=== PATIENT | male | born 1985 | race Caucasian/White ===

== ENCOUNTER 2018-07-08 23:58 | Emergency (ER) | payer OTHER, SELFPAY ==
[2018-07-08 23:59] VITALS: BP 153/84; PULSE 62; RESP 16; TEMP 36.9; O2SAT 95; BMI 33.3
--- NOTE | 2018-07-09 00:16 | ED.DCSUM_ITS ---
- ER Visit Summary Date of Service: 07/09/18 Chief Complaint: Right ear bleeding History of Present Illness: The patient is a 33 M who states that for the past several days she has had an earache. He went to the doctor earlier taryn was diagnosed with otitis media on the right and started on amoxicillin. Then this evening he began to have bleeding from the ear. He states that his hearing is not the same compared to the left. He notes nasal congestion. Physical Examination: Afebrile vital signs are stable Gen: Well-nourished well-developed Head: Normocephalic atraumatic Eyes: Perrl EOMI ENT: Noted nasal congestion. The right tympanic membrane is ruptured. There is blood and debris in the canal. Moist mucous membranes Neck: Supple no lymphadenopathy no JVD nontender CVS: Regular rate rhythm no murmurs normal S1-S2 Respiratory: No distress clear to auscultation bilaterally chest nontender Abdomen: Soft nontender nondistended normal bowel sounds no masses Back: Nontender Extremity: Nontender no edema Skin: Normal color no rash Neuro: alert orientated ?3 CN II-XII intact normal strength sensation reflexes gait cerebellar Psych: Normal affect normal mood Test Results: None indicated Emergency Department Course and Treatment: Patient will be started on Ciprodex. He should continue his Amoxil. Follow-up in 1-2 weeks to ensure resolution Impression: 1. Right tympanic membrane rupture secondary to otitis media This note was generated with [employer] dictation software. It may contain incorrect words, spelling, and punctuation that were not noted in review of the chart prior to signing ED Disposition - Plan for ED Patient: Disposition: Home or Assisted Living Chief Complaint: Ear Problem Instructions: ED Rupture Eardrum Infec Prescriptions: Ciprofloxacin HCl/Dexameth [Ciprodex Otic Suspension] 4 ml RIGHT EAR BID 7 Days #1 drops.susp Referrals: Kota Lobato MD [Primary Care Provider] - (2 weeks)
[2018-07-09 00:19] VITALS: RESP 14
== END 2018-07-09 00:19 | disposition home or self-care (01) ==
PROVIDERS: Emergency Provider Emergency Medicine; Family Provider Family Medicine; PCP Family Medicine
DX: H66.91 Otitis media, unspecified, right ear (principal); H72.91 Unspecified perforation of tympanic membrane, right ear; R09.81 Nasal congestion
CPT/HCPCS: 99282

== ENCOUNTER 2024-08-28 18:06 | Inpatient (IN) | payer OTHER, SELFPAY ==
[2024-08-28 18:07] VITALS: BP 115/91; PULSE 135; RESP 19; TEMP 35.8; O2SAT 99
--- NOTE | 2024-08-28 18:56 | EKG12_ITS ---
Test Reason : DYSRHYTHMIA Blood Pressure : */* mmHG Vent. Rate : 98 BPM Atrial Rate : 98 BPM P-R Int : 150 ms QRS Dur : 84 ms QT Int : 328 ms P-R-T Axes : 60 -18 36 degrees QTcB Int : 418 ms Normal sinus rhythm Normal ECG Confirmed by MILI BUSH, NOLA ([id number]), news videotape editor OSWALD DIEGO ([id number]) on 08/31/2024 2:24:54 PM Referred By: Mac Keen Confirmed By: NOLA GARCES MD
--- NOTE | 2024-08-28 18:58 | EDS_ITS ---
HPI HPI - GI History of Present Illness Chief Complaint: GI Bleed Narrative Narrative: Patient is a 39-year-old male denies any significant past medical history presenting with 1 day of bloody stools. He states he is stooling straight blood. He has had 8-9 episodes. I also reports an episode of coughing today when blood came up. Does not take any blood thinners. Does not take any medications. Denies any associated pain. Does feel lightheaded. Had a sy ncopal episode while in the bathroom here. PFSH PFSH Home Medications ?Medication ?Instructions ?Recorded ?Last Taken ?Type NK 08/28/24 Unknown History Allergy/AdvReac Type Severity Reaction Status Date / Time No Known Allergies Allergy Verified 07/09/18 00:02 Social History Smoking Status: Never smoker ROS ROS ED Constitutional Constitutional ED: Reports sweats and other Details: Lightheaded ; Denies chills or fever(s) Cardiovascular Cardiovascular: Denies chest pain Respiratory/Chest Respiratory/Chest: Reports cough and other Details: Reports hemoptysis ; Denies dyspnea Gastrointestinal Gastrointestinal: Reports melena; Denies abdominal pain, nausea or vomiting Genitourinary Genitourinary ED: Denies dysuria Musculoskeletal Musculoskeletal: Denies arthralgias or myalgias Integumentary Denies rash Neurologic Neurologic: Reports weakness Hematologic/Lymphatic Hematologic/Lymphatic: Denies easy bleeding or easy bruising EXAM Physical Exam Const Vital Signs: 08/28/24 18:07 08/28/24 20:06 08/28/24 22:00 Temperature 96.5 F L Temperature Source Temporal Pulse Rate 135 H 111 H 102 H Respiratory Rate 19 H 17 20 H Blood Pressure 115/91 H 112/64 99/73 Blood Pressure Mean 99 80 81 Pulse Ox 99 97 97 Oxygen Delivery Method Room Air Room Air Room Air 08/28/24 22:26 Temperature 97.9 F Temperature Source Pulse Rate 102 H Respiratory Rate 20 H Blood Pressure 99/73 Blood Pressure Mean 81 Pulse Ox 97 Oxygen Delivery Method Positive well nourished and well developed Constitutional Narrative: Quite ill-appearing, pale General Appearance ED: well developed and pallor HEENT Reports moist mucous membranes normocephalic and atraumatic Eyes PERRL General Eye ED: Negative for pale conjunctiva Neck supple and no JVD Resp normal respiratory effort and clear to auscultation bilaterally Cardio no murmurs Rate: tachycardic GI non-tender and non-distended GI Narrative: Large amount of melanotic/burgundy stool present after bowel movement Inspection: Negative for abdominal distention Auscultation: normoactive bowel sounds Extremity full ROM General Extremety ED: Negative for edema General Extremity: Negative for edema Neuro Sensorium / Orientation: alert Motor Exam: general weakness Psych mental status grossly normal and thought process normal Skin General Skin Exam: pallor MDM MDM MDM Narrative Medical decision making narrative: Patient is evaluated for 1 day of melanotic stools. Patient is tachycardic upon arrival. He went to the bathroom shortly after getting back into his room and had a syncopal episode falling and hitting his head. Patient was evaluated immediately by myself. Patient is pale, diaphoretic and hypotensive. The stool is visualized and is grossly melanotic/bloody. Concern for unstable GI bleed. I did reach out to GI who is aware. Patient stabilized with IV fluids. Given IV Protonix. Does not have any known history of cirrhosis or varices however does report moderate alcohol use. Does not sound like he is an alcoholic however. Lab work shows a significant leukocytosis of 20.9 and a mild anemia with a hemoglobin 12.5. I have no baseline to compare to. His platelets are normal. He does have a left shift. His BUN is elevated at 43 needs a creatinine of 1.16. Lactate is also elevated. Patient is typed and screened. Clinically does improve with IV fluids. He has no further bleeding. Abdomen is soft and nontender. CT of the brain is ordered for evaluation given his fall and CT of the chest abdomen pelvis is ordered given the report of hemoptysis as well as his bleeding. Imaging is largely negative. Patient remitted to the PCU for hemodynamic monitoring, blood transfusion as needed and GI consult. H&H repeated and does show mild drop from 12.5-11.3. All patient's labs are consistent with septic shock I think this is more associated with unstable GI bleed and not infectious. He is not given antibiotics at this time. History & Record Review Additional record(s) reviewed:: No prior records Lab Data Attestation: I reviewed the patient's lab results. Labs: Laboratory Results - last 24 hr 08/28/24 08/28/2408/28/24 18:19 18:52 18:55 WBC 20.9 H RBC 3.94 L Hgb 12.5 L Hct 36.7 L MCV 93.1 MCH 31.7 MCHC 34.1 RDW Std Deviation 40.9 RDW Coeff of Ajit 12.0 Plt Count 421 MPV 9.2 Immature Gran % (Auto) 1.200 H Neut % (Auto) 80.3 H Lymph % (Auto) 12.4 L [place] % (Auto) 5.4 Eos % (Auto) 0.3 Baso % (Auto) 0.4 Absolute Neuts (auto) 16.8 H Absolute Lymphs (auto) 2.60 Nucleated RBC % 0 PT 13.6 INR 1.0 APTT 21.9 L Sodium 139 Potassium 3.9 Chloride 107 Carbon Dioxide 26.0 Anion Gap 6 BUN 43 H Creatinine 1.16 Est GFR (MDRD) Af Amer 90 Est GFR (MDRD) Non-Af 74 BUN/Creatinine Ratio 37.1 H Glucose 162 H Hemoglobin A1c Lactic Acid Calcium 8.4 L Iron TIBC Iron Saturation Ferritin Total Bilirubin 0.50 Direct Bilirubin 0.14 AST 15 ALT 32 Alkaline Phosphatase 73 Troponin I High Sens 18 Total Protein 6.1 L Albumin 3.2 Globulin 2.9 Lipase 14 Folate Urine Color Yellow Urine Clarity Clear Urine pH 6.0 Ur Specific [place] 1.020 Urine Protein 15 H Urine Glucose (UA) 50 H Urine Ketones Negative Urine Occult Blood Negative Urine Nitrite Negative Urine Bilirubin Negative Urine Urobilinogen Normal Ur Leukocyte Esterase Negative Urine RBC 0-5 SEEN Urine WBC 0-5 SEEN Ur Squamous Epith Cells 0 SEEN Urine Bacteria 0 SEEN Hyaline Casts 0-5 SEEN Urine Mucus 1+ Ethyl Alcohol < 3.0 POC Glucose 156 H Blood Type O POSITIVE Antibody Screen NEGATIVE 08/28/24 08/28/24 08/28/24 19:05 21:28 22:55 WBC 16.3 H RBC 3.48 L Hgb 11.3 L Hct 32.3 L MCV 92.8 MCH 32.5 H MCHC 35.0 RDW Std Deviation 40.9 RDW Coeff of Ajit 12.1 Plt Count 343 MPV 9.3 Immature Gran % (Auto) Neut % (Auto) Lymph % (Auto) [place] % (Auto) Eos % (Auto) Baso % (Auto) Absolute Neuts (auto) Absolute Lymphs (auto) Nucleated RBC % PT INR APTT Sodium Potassium Chloride Carbon Dioxide Anion Gap BUN Creatinine Est GFR (MDRD) Af Amer Est GFR (MDRD) Non-Af BUN/Creatinine Ratio Glucose Hemoglobin A1c 5.0 Lactic Acid 2.3 H* Calcium Iron 94 TIBC 256 Iron Saturation 36.7 Ferritin 156 Total Bilirubin Direct Bilirubin AST ALT Alkaline Phosphatase Troponin I High Sens 26 Total Protein Albumin Globulin Lipase Folate 8.80 Urine Color Urine Clarity Urine pH Ur Specific [place] Urine Protein Urine Glucose (UA) Urine Ketones Urine Occult Blood Urine Nitrite Urine Bilirubin Urine Urobilinogen Ur Leukocyte Esterase Urine RBC Urine WBC Ur Squamous Epith Cells Urine Bacteria Hyaline Casts Urine Mucus Ethyl Alcohol POC Glucose Blood Type Antibody Screen 08/28/24 23:28 WBC RBC Hgb Hct MCV MCH MCHC RDW Std Deviation RDW Coeff of Ajit Plt Count MPV Immature Gran % (Auto) Neut % (Auto) Lymph % (Auto) [place] % (Auto) Eos % (Auto) Baso % (Auto) Absolute Neuts (auto) Absolute Lymphs (auto) Nucleated RBC % PT INR APTT Sodium Potassium Chloride Carbon Dioxide Anion Gap BUN Creatinine Est GFR (MDRD) Af Amer Est GFR (MDRD) Non-Af BUN/Creatinine Ratio Glucose Hemoglobin A1c Lactic Acid 1.2 Calcium Iron TIBC Iron Saturation Ferritin Total Bilirubin Direct Bilirubin AST ALT Alkaline Phosphatase Troponin I High Sens Total Protein Albumin Globulin Lipase Folate Urine Color Urine Clarity Urine pH Ur Specific [place] Urine Protein Urine Glucose (UA) Urine Ketones Urine Occult Blood Urine Nitrite Urine Bilirubin Urine Urobilinogen Ur Leukocyte Esterase Urine RBC Urine WBC Ur Squamous Epith Cells Urine Bacteria Hyaline Casts Urine Mucus Ethyl Alcohol POC Glucose Blood Type Antibody Screen Radiography Diagnostic Testing: Clinical Impression(s) from Imaging Studies Brain CT 08/28/24 20:07 IMPRESSION: 1. Normal CT examination of brain 2. No intracranial evidence of acute traumatic injury. 3. No intracranial mass, hemorrhage or acute territorial infarct. 4. No radiographically significant sinus disease.. Electronically Signed: Michael Spangler MD at 21:13 EST , Chest/Abdomen/Pelvis CT 08/28/24 20:07 IMPRESSION: 1. No pulmonary infiltrate consolidation or effusion. No masses or adenopathy mediastinum or hilar regions. 2. Small hiatal hernia. 3. No bowel obstruction abscess free fluid or free air. No evidence diverticulitis or appendicitis. No bowel mass is noted. 4. No evidence of obstructive uropathy. 5. No evidence of cholelithiasis or duct dilatation. Electronically Signed: Michael Spangler MD at 21:39 EST , Rhythm Strip Rhythm Strip: Sinus Rhythm Rate: 98 Ectopy: None EKG Initial EKG: Attestation: I personally reviewed and interpreted this EKG as follows: Interpretation: Sinus Rhythm Comments: Normal sinus rhythm 98 bpm Normal axis Normal intervals Normal ST segments Prior: No Prior Management Discussion w/another healthcare provider: Hospitalist and [employer] Discharge Plan Dx/Rx/DC Orders Clinical Impression: Melena, Syncope and collapse, Acute anemia Disposition Disposition: Acute Care Hospital [facility] Discharge Date/Time: 08/29/24 00:10
[2024-08-28] MEDS: 0.9% Normal Saline (1000mL) 1,000 ML 1000 ML IV ×2 (19:00→20:30)
[2024-08-28 19:09] LABS: Absolute Neutrophil Count 16.8 X10^3/uL (2.0-7.7); Basophil# 0.09 X10^3/uL; Basophil% 0.4 % (0-1); Eosinophil# 0.07 X10^3/uL; Eosinophils% 0.3 % (0-5); Hematocrit 36.7 % (40-54); Hemoglobin 12.5 g/dL (13.0-16.5); Lymphocyte % 12.4 % (19-41); Mean Corp Hgb Conc 34.1 g/dL (32-36); Mean Corpuscular Hgb 31.7 pg (27.0-32.0); Mean Corpuscular Volume 93.1 fL (80-94); Mean Platelet Vol. 9.2 fl (6.2-12.0); Monocyte# 1.13 X10^3/uL; Monocyte% 5.4 % (0-10); NRBC Flagged by Analyzer 0 % (0-5); Neutrophil # 16.76 X10^3/uL (2.7-7.7); Neutrophil % 80.3 % (47-70); Platelet Count 421 K/mm3 (150-450); RBC Distribution Width SD 40.9 fl (35.1-43.9); Red Blood Count 3.94 M/mm3 (4.6-6.2); White Blood Count 20.9 K/mm3 (4.4-11.0)
[2024-08-28 19:09] LABS: Bedside Glucose 156 mg/dL (74-106)
[2024-08-28 19:31] LABS: Alcohol, Blood (Medical)-Serum < 3.0 mg/dL
[2024-08-28 19:33] LABS: Prothrombin Time (Protime)PT. 13.6 SECONDS (11.7-14.9)
[2024-08-28 19:34] LABS: Partial Thromboplast Time 21.9 Seconds (24.1-36.2)
[2024-08-28 19:40] LABS: AST(SGOT) 15 U/L (15-37); Alanine Aminotransfer ALT/SGPT 32 U/L (16-61); Albumin, Serum 3.2 g/dL (3.2-5.0); Alkaline Phosphatase 73 U/L (45-117); Anion Gap 6 (5-15); BUN 43 mg/dL (7-18); BUN/Creat Ratio 37.1 RATIO (10-20); Bilirubin, Direct 0.14 mg/dL (0.00-0.30); Calcium,Total 8.4 mg/dL (8.5-10.1); Chloride 107 mmol/L (98-107); Creatinine, Serum 1.16 mg/dL (0.70-1.30); EST Glomerular Filtration Rate 74 mL/min (>60); Est Glom Filt Rate - Afr Amer 90 mL/min (>60); Globulin 2.9 g/dL (2.2-4.2); Glucose 162 mg/dL (74-106); Lipase 14 U/L (13-75); Potassium 3.9 mmol/L (3.5-5.1); Protein, Total 6.1 g/dL (6.4-8.2); Sodium Level 139 mmol/L (136-145); Troponin-I HS (w/2H Reflex) 18 pg/mL (3.0-78.0)
[2024-08-28] MEDS: Pantoprazole Sodium 80 MG in 0.9% Normal Saline (50mL Bag) 15 ML 420 MG IV BOLUS (19:42)
[2024-08-28 19:50] LABS: Lactic Acid 2.3 mmol/L (0.4-1.9)
[2024-08-28 20:06] VITALS: BP 112/64; PULSE 111; RESP 17; O2SAT 97
--- NOTE | 2024-08-28 20:07 | CT_ITS ---
INDICATION: head injury EXAMINATION: CT BRAIN - CT Head or Brain W/O Contrast Injection TECHNIQUE: Multiple axial images were obtained of the head without intravenous contrast. A radiation dose optimization technique was used for this scan. IV Contrast dosage and agent: None. RADIATION DOSAGE (If Supplied By Facility): CTDIvol = ( 44.99 ) mGy, DLP = ( 829.85 ) mGycm COMPARISON: No relevant prior examinations for comparison FINDINGS: HEMISPHERES: 1. The cerebral parenchyma, ventricular system, subarachnoid spaces have normal configuration and density. There is a normal gyral pattern. There is normal ortiz/white differentiation. No midline shift.. 2. The hemispheric white matter has normal appearance. 3. No intraparenchymal mass, hemorrhage, or acute territorial infarct. CEREBELLUM - BRAINSTEM: The cerebellum, brainstem, basilar and suprasellar cisterns have normal appearance. No Chiari malformation. PITUITARY: Infundibulum and pituitary have normal configuration. Midline structures appear normal. CSF SPACES: Appropriate for age. No hydrocephalus. Basal cisterns are patent. VESSELS: 1. No significant vascular calcifications in the cavernous carotid vessels. 2. No hyperdense vascular signs noted.. ORBITS AND PARANASAL SINUSES: 1. Normal appearance of the bony orbits. Normal appearance of the globes and retrobulbar soft tissues.. 2. Paranasal sinuses are clear. BONY ELEMENTS: Bony elements of the cranial vault, facial skeleton and skull base have normal appearance. SCALP AND SOFT TISSUES: Normal appearance of the soft tissues of the scalp and the visualized face OTHER: None ASPECTS Score for Acute Strokes: 10 CT/Brain/Head without Contrast IMPRESSION: 1. Normal CT examination of brain 2. No intracranial evidence of acute traumatic injury. 3. No intracranial mass, hemorrhage or acute territorial infarct. 4. No radiographically significant sinus disease.. Electronically Signed: Michael Spangler MD at 21:13 EST ,
--- NOTE | 2024-08-28 20:07 | CT_ITS ---
INDICATION: Reported hemoptysis, upper GI bleed EXAMINATION: CT ABDOMEN AND PELVIS WITH CONTRAST - CT Chest Abdomen And Pelvis W/ Contrast Injection TECHNIQUE: Helically acquired images were obtained of the abdomen and pelvis following IV contrast. A radiation dose optimization technique was used for this scan. IV Contrast dosage and agent: 100 mL [id number] Oral contrast: None. Radiation Dose (provided by facility) CTDIvol (24.25 ) mGy, DLP ( 2743.35) mGy-cm COMPARISON: : No relevant prior comparison study available FINDINGS: CT CHEST: LUNGS: [Lungs are clear without infiltrate consolidation or effusion. Scattered pleural-based nodules are present including a 6 mm nodule along the anterior aspect of the RIGHT middle lobe (series 9: Image 73. Additional pleural-based nodule at the RIGHT apex, measuring approximately 5 mm.. No mass. No consolidation. PLEURAL SPACES: Unremarkable, no effusion or pneumothorax noted.. HEART: Unremarkable. No pericardial effusion. VASCULATURE: Unremarkable. No aortic aneurysm. MEDIASTINUM AND LYMPH NODES: Unremarkable. No significant adenopathy. CERVICAL THORACIC JUNCTION: There is normal appearance of the visualized airway. No masses or abnormal fluid collections. Visualized thyroid is within normal limits. CT ABDOMEN PELVIS: HEPATOBILIARY: Liver: The liver is homogeneous and shows no evidence of focal lesion. Gallbladder: The gallbladder is unremarkable. Pancreas: Pancreas is normal size configuration and density. No mass is noted. Spleen: The spleen is homogeneous and normal in size. . BOWEL: 1. Stomach: The stomach is normal in size configuration, no evidence of focal masses, abnormal calcifications. There is a small hiatal hernia. 2. Bowel: Small and large have normal configuration, no masses or bowel obstruction noted. Scattered diverticula without evidence diverticulitis. 3. Appendix: Normal: GENITOURINARY: Adrenals: Both adrenal glands are normal in size. Kidneys: Kidneys appear symmetric in size. No calcifications are seen in the collecting system. There is no hydronephrosis or surrounding fluid. Bladder: Normal Pelvic organs: The visualized pelvic organs are normal in size and configuration. No masses or adenopathy noted. RETROPERITONEUM: There is normal appearance of the abdominal aorta and inferior vena cava. No evidence of retroperitoneal or para-aortic masses fluid collections or adenopathy. ANTERIOR ABDOMINAL WALL: There is a small periumbilical fat-containing hernia. CHEST ABDOMEN PELVIS - BONES AND BODY WALL SOFT TISSUES: 1. Mild thoracic and lumbar spondylosis with marginal osteophyte formation present. No evidence of fracture destructive bony process. No canal stenosis. 2. No fractures focal bony lesions involving the sternum, visualized rib cage, shoulders, pelvis or hips. 3. The skeleton shows no evidence for fractures or destructive lesions. OTHER: None CT/CT Chest, Abd, Pel w/Contrast IMPRESSION: 1. No pulmonary infiltrate consolidation or effusion. No masses or adenopathy mediastinum or hilar regions. 2. Small hiatal hernia. 3. No bowel obstruction abscess free fluid or free air. No evidence diverticulitis or appendicitis. No bowel mass is noted. 4. No evidence of obstructive uropathy. 5. No evidence of cholelithiasis or duct dilatation. Electronically Signed: Michael Spangler MD at 21:39 EST ,
[2024-08-28 20:25] LABS: Bacteria 0 SEEN /hpf (None Seen); Squamous Epithelial Cells - UA 0 SEEN /hpf (0-5)
[2024-08-28 20:26] LABS: Color, Urine Yellow (Yellow); Glucose, Dipstick 50 mg/dl (Normal); Ketone-Dipstick Negative (Negative); Leukocyte Esterase-Dipstick Negative /ul (Negative); Nitrite-Dipstick Negative (Negative); Occult Blood-Urine Negative /ul (Negative); Protein-Dipstick 15 mg/dl (Negative); Urine Bilirubin Dipstick Negative (Negative); Urine Clarity Clear (Clear); Urine Urobilinogen Normal (Normal)
[2024-08-28 21:04] LABS: Reflex Troponin-HS? (from REC) Y
[2024-08-28 21:07] LABS: Hyaline Cast 0-5 SEEN /lpf (0-5); Mucous, Urine 1+ /hpf (<or=2+); Red Blood Cells-Urine 0-5 SEEN /hpf (0-5); White Blood Cells 0-5 SEEN /hpf (0-5)
[2024-08-28 22:00] VITALS: BP 99/73; PULSE 102; RESP 20; O2SAT 97
[2024-08-28 22:14] LABS: Troponin-I HS 26 pg/mL (3.0-78.0)
[2024-08-28 22:26] VITALS: BP 99/73; PULSE 102; RESP 20; TEMP 36.6; O2SAT 97
[2024-08-28] MEDS: 0.9% Normal Saline (1000mL) 1,000 ML 150 ML IV (22:56)
[2024-08-28 23:06] LABS: Hematocrit 32.3 % (40-54); Hemoglobin 11.3 g/dL (13.0-16.5); Mean Corpuscular Hgb 32.5 pg (27.0-32.0); Mean Corpuscular Volume 92.8 fL (80-94); Mean Platelet Vol. 9.3 fl (6.2-12.0); Platelet Count 343 K/mm3 (150-450); RBC Distribution Width CV 12.1 % (11.6-14.6); RBC Distribution Width SD 40.9 fl (35.1-43.9); Red Blood Count 3.48 M/mm3 (4.6-6.2); White Blood Count 16.3 K/mm3 (4.4-11.0)
--- NOTE | 2024-08-28 23:07 | HP.PCM.HOS_ITS ---
HPI - General General Date of Admission: 08/28/24 Date of Service: 08/28/24 Chief Complaint: Melanotic Stools with Syncope in ER. HPI Narrative BRANT STALLWORTH, is a 39 M with a past medical history of obesity; with BMI of 37.7 this admission and history of EtOH use who presents to [facility] ER complaining of melanotic stools. Mr. Stallworth reports his symptoms began earlier today with the abrupt-onset of melanotic stools. He states he had eight dark bloody BM's prior to arrival followed by two more after arrival. He admits to lightheadedness with a witnessed syncopal event in the ER shortly after arrival. He also admits to coughing up a small amount of blood but he denies taking blood thinners, known history of PUD, similar previous episodes or a family history of GI bleeding or GI malignancy. He is currently on no medications. He admits to lightheadedness and sweats along with increased life- stress but he denies significant EtOH use, fever, chills, nausea, vomiting or abdominal pain. In the ER he was diagnosed with suspected UGIB with melanotic stools likely due to PUD complicated by Syncope suspected to be due to ABLA with a hemoglobin of 12.5 g/dL and BUN of 43 mg/dL with serum creatinine of 1.16 mg/dL present on admission complicated by Leukocytosis of 20.9K with Left-shift of 1.2% and Lactic Acidosis of 2.3 mmol/L present on admission suspected to be due to Acute Stress Response arising from Severe Bleeding and he was then admitted to the PCU for ongoing care for a stay that is expected to extend beyond 2 midnights. [facility] Medical History no medical history Home Medications ?Medication ?Instructions ?Recorded ?Last Taken ?Type NK 08/28/24 Unknown History Allergy/AdvReac Type Severity Reaction Status Date / Time No Known Allergies Allergy Verified 07/09/18 00:02 Family History no significant family his Surgical History no surgical history Social History Smoking Status: Never smoker ROS ROS Narrative Review of Systems: Constitutional: Patient admits to lightheadedness and sweats but he denies fever or chills. Eyes: Patient denies changes in vision or discharge from eyes. ENT: Patient denies runny nose, sore throat or ear pain. Resp: Patient admits to cough with bloody sputum but he denies SOB. CV: Patient admits to syncopal event in ER. He denies chest pain or palpitations. GI: Patient admits to numerous melanotic stools as per HPI but he denies abdominal pain, nausea or vomiting. : Patient denies dysuria or hematuria. MSK: Patient denies arthralgias or myalgias. Skin: Patient denies rash, abscess or jaundice. Psych: Patient admits to increased life stress but he denies symptoms of uncontrolled depression or anxiety. Neuro: Patient denies headache, paresthesias or focal neurologic deficits. Allergy: Patient denies lip swelling, tongue swelling or urticaria. Hematology: Patient admits to numerous melanotic stools as per HPI. Endocrinology: Patient denies polyuria, polydipsia or polyphagia. 14 point ROS otherwise negative except for positives noted above in HPI. Vital Signs Vital Signs Vital Signs: 08/28/24 18:07 08/28/24 20:06 08/28/24 22:00 Temperature 96.5 F L Temperature Source Temporal Pulse Rate 135 H 111 H 102 H Respiratory Rate 19 H 17 20 H Blood Pressure 115/91 H 112/64 99/73 Blood Pressure Mean 99 80 81 Pulse Ox 99 97 97 Oxygen Delivery Method Room Air Room Air Room Air 08/28/24 22:26 Temperature 97.9 F Temperature Source Pulse Rate 102 H Respiratory Rate 20 H Blood Pressure 99/73 Blood Pressure Mean 81 Pulse Ox 97 Oxygen Delivery Method Physical Exam Const alert, oriented x3, no apparent distress, average body habitus and healthy appearing General Appearance: cooperative HEENT normocephalic, head/scalp atraumatic, hearing grossly normal bilaterally and moist oral mucous membranes Eyes PERRL and EOMs intact bilaterally Neck no lymphadenopathy and supple Resp normal respiratory effort, no retractions, no use of accessory muscles and clear to auscultation bilaterally Cardio regular rate and regular rhythm GI normal to inspection, nondistended, normoactive bowel sounds, soft to palpation, non-tender and non-distended Extremity normal to inspection and full ROM Skin Skin Narrative: Patient has numerous tattoos but he has no evidence of rash, abscess or jaundice. Neuro oriented x3, CN's II-XII intact bilaterally, moves all extremities and no focal motor deficits Sensorium / Orientation: awake, alert, oriented to person, oriented to place and oriented to time Speech: speech normal Psych affect normal Results Medical Records Data Attestation: I reviewed the patient's medical records Lab / Micro Data Attestation: I reviewed the patient's lab results. 08/28/24 22:55 08/28/24 18:55 Labs: Laboratory Results - last 24 hr 08/28/24 18:19: Urine Color Yellow, Urine Clarity Clear, Urine pH 6.0, Ur Specific [place] 1.020, Urine Protein 15 H, Urine Glucose (UA) 50 H, Urine Ketones Negative, Urine Occult Blood Negative, Urine Nitrite Negative, Urine Bilirubin Negative, Urine Urobilinogen Normal, Ur Leukocyte Esterase Negative, Urine RBC 0-5 SEEN, Urine WBC 0-5 SEEN, Ur Squamous Epith Cells 0 SEEN, Urine Bacteria 0 SEEN, Hyaline Casts 0-5 SEEN, Urine Mucus 1+ 08/28/24 18:52: POC Glucose 156 H 08/28/24 18:55: WBC 20.9 H, RBC 3.94 L, Hgb 12.5 L, Hct 36.7 L, MCV 93.1, MCH 31.7, MCHC 34.1, RDW Std Deviation 40.9, RDW Coeff of Ajit 12.0, Plt Count 421, MPV 9.2, Immature Gran % (Auto) 1.200 H, Neut % (Auto) 80.3 H, Lymph % (Auto) 12.4 L, [place] % (Auto) 5.4, Eos % (Auto) 0.3, Baso % (Auto) 0.4, Absolute Neuts (auto) 16.8 H, Absolute Lymphs (auto) 2.60, Nucleated RBC % 0, PT 13.6, INR 1.0, APTT 21.9 L, Sodium 139, Potassium 3.9, Chloride 107, Carbon Dioxide 26.0, Anion Gap 6, BUN 43 H, Creatinine 1.16, Est GFR (MDRD) Af Amer 90, Est GFR (MDRD) Non- Af 74, BUN/Creatinine Ratio 37.1 H, Glucose 162 H, Calcium 8.4 L, Total Bilirubin 0.50, Direct Bilirubin 0.14, AST 15, ALT 32, Alkaline Phosphatase 73, Troponin I High Sens 18, Total Protein 6.1 L, Albumin 3.2, Globulin 2.9, Lipase 14, Ethyl Alcohol < 3.0, Blood Type O POSITIVE, Antibody Screen NEGATIVE 08/28/24 19:05: Lactic Acid 2.3 H* 08/28/24 21:28: Troponin I High Sens 26 08/28/24 22:55: WBC 16.3 H, RBC 3.48 L, Hgb 11.3 L, Hct 32.3 L, MCV 92.8, MCH 32.5 H, MCHC 35.0, RDW Std Deviation 40.9, RDW Coeff of Ajit 12.1, Plt Count 343, MPV 9.3 Imaging Radiology Impression Brain CT 08/28/24 20:07 IMPRESSION: 1. Normal CT examination of brain 2. No intracranial evidence of acute traumatic injury. 3. No intracranial mass, hemorrhage or acute territorial infarct. 4. No radiographically significant sinus disease.. Electronically Signed: Michael Spangler MD at 21:13 EST Reading Location ID and State: [id number] Tel , Service support , Chest/Abdomen/Pelvis CT 08/28/24 20:07 IMPRESSION: 1. No pulmonary infiltrate consolidation or effusion. No masses or adenopathy mediastinum or hilar regions. 2. Small hiatal hernia. 3. No bowel obstruction abscess free fluid or free air. No evidence diverticulitis or appendicitis. No bowel mass is noted. 4. No evidence of obstructive uropathy. 5. No evidence of cholelithiasis or duct dilatation. Electronically Signed: Michael Spangler MD at 21:39 EST , Assessment & Plan Assessment/Plan (1) Melena: (2) Acute anemia: (3) Syncope and collapse: (4) Leukocytosis: QUALIFIERS: Leukocytosis type: unspecified Qualified Code(s): D 72.829 - Elevated white blood cell count, unspecified (5) Lactic acidosis: (6) Obesity (BMI 30-39.9): PLAN: Plan 1. UGIB with melanotic stools likely due to PUD complicated by Syncope suspected to be due to ABLA with a hemoglobin of 12.5 g/dL and BUN of 43 mg/dL with serum creatinine of 1.16 mg/dL present on admission - Admit to PCU. Keep strict NPO and continue IV Protonix drip begun in ER. Type and Screen blood and transfuse for hemoglobin < 7g/dL. Finally, we will consult gastroenterology to see this patient on-rounds in the AM for further recommendations regarding EGD this admission with help appreciated in advance. 2. Leukocytosis of 20.9K with Left-shift of 1.2% and Lactic Acidosis of 2.3 mmol/L present on admission suspected to be due to Acute Stress Response arising from Severe Bleeding arising from #1 - Recheck CBC in AM to follow trend. Repeat lactate to follow trend. There are currently no signs of acute infection or fever so antibiotics will be withheld. 3. Obesity; with BMI of 37.7 this admission complicating #1 & #2 - Weight loss will be recommended. Check TSH. This complicates his case and may hamper recovery. 4. History of EtOH use - Noted not to be significant with no recent EtOH Abuse. 5. DVT prophylaxis - SCD's only. Total time: Approximately 55 minutes. Charges/Coding Visit Charges Inpatient E&M: 72538 Init Hosp L2
[2024-08-28 23:09] LABS: Reflex Lactate? Y
[2024-08-28 23:57] LABS: Lactic Acid 1.2 mmol/L (0.4-1.9)
[2024-08-29] VITALS (14 sets, daily range): BP systolic 100–131; BP diastolic 59–81; PULSE 81–111; RESP 14–18; TEMP 35.8–36.6; O2SAT 96–99; BMI 37.7
[2024-08-29] LABS: Ferritin 156 ng/mL (26-388); Iron 94 ug/dL (65-175); Iron Binding Capacity,Total 256 ug/dL (250-450); PERCENT IRON SATURATION 36.7 % (15.0-55.0)
[2024-08-29] MEDS: Pantoprazole Sodium 80 MG in 0.9% Normal Saline (100mL Bag) 80 ML 10 MG CONT INF ×2 (01:38→13:12)
[2024-08-29 01:46] LABS: Vitamin B12 484 pg/mL (211-911)
[2024-08-29 06:37] LABS: Absolute Lymphocyte Count 2.52 X10^3/uL (0.83-4.51); Absolute Neutrophil Count 7.9 X10^3/uL (2.0-7.7); Basophil# 0.05 X10^3/uL; Basophil% 0.4 % (0-1); Eosinophil# 0.08 X10^3/uL; Eosinophils% 0.7 % (0-5); Hematocrit 28.8 % (40-54); Hemoglobin 9.9 g/dL (13.0-16.5); Lymphocyte # 2.52 X10^3/ul (0.83-4.51); Lymphocyte % 21.9 % (19-41); Mean Corp Hgb Conc 34.4 g/dL (32-36); Mean Corpuscular Hgb 31.7 pg (27.0-32.0); Mean Corpuscular Volume 92.3 fL (80-94); Mean Platelet Vol. 9.3 fl (6.2-12.0); Monocyte# 0.81 X10^3/uL; NRBC Flagged by Analyzer 0 % (0-5); Neutrophil # 7.94 X10^3/uL (2.7-7.7); Neutrophil % 68.9 % (47-70); Platelet Count 299 K/mm3 (150-450); RBC Distribution Width CV 12.2 % (11.6-14.6); RBC Distribution Width SD 40.6 fl (35.1-43.9); Red Blood Count 3.12 M/mm3 (4.6-6.2); White Blood Count 11.5 K/mm3 (4.4-11.0)
[2024-08-29 06:46] LABS: Prothrombin Time (Protime)PT. 13.6 SECONDS (11.7-14.9)
[2024-08-29 06:47] LABS: Partial Thromboplast Time 24.9 Seconds (24.1-36.2)
[2024-08-29 07:25] LABS: ALB/GLOB Ratio 1.2 RATIO (0.9-2.4); AST(SGOT) 16 U/L (15-37); Alanine Aminotransfer ALT/SGPT 25 U/L (16-61); Albumin, Serum 2.8 g/dL (3.2-5.0); Alkaline Phosphatase 55 U/L (45-117); Anion Gap 5 (5-15); BUN 30 mg/dL (7-18); BUN/Creat Ratio 42.6 RATIO (10-20); Calcium,Total 7.8 mg/dL (8.5-10.1); Chloride 110 mmol/L (98-107); EST Glomerular Filtration Rate 132 mL/min (>60); Est Glom Filt Rate - Afr Amer 159 mL/min (>60); Estimated Creatinine Clearance 197.98 ml/min; Globulin 2.4 g/dL (2.2-4.2); Glucose 103 mg/dL (74-106); Magnesium 1.7 mg/dL (1.6-2.6); Phosphorus 2.3 mg/dL (2.5-4.9); Potassium 3.8 mmol/L (3.5-5.1); Protein, Total 5.2 g/dL (6.4-8.2); Sodium Level 139 mmol/L (136-145); Thyroid Stim Hormone (TSH) 0.596 uIU/mL (0.358-3.740)
--- NOTE | 2024-08-29 08:45 | HP.PCM.HOS_ITS ---
HPI - General General Date of Admission: 08/28/24 Date of Service: 08/29/24 Chief Complaint: Melanotic Stools with Syncope in ER. HPI Narrative The patient is a 39 y/o M w/ PMHx: Obesity ABLA secondary to suspected suspected Acute UGIB complicated by Syncopal event: Admission Hgb 12.5, admitted to PCU, continue to trend HHs, administer PRBC as needed if Hgb drops </= 7 or symptomatic, maintain NPO status, maintain on IV PPI, GI consulted and evaluation pending. Leukocytosis, suspected secondary to stress response with #1: Admission w/ WBC 20.9, no evidence of any infection, 08/29/24 most recent repeat CBC w/ WBC 11.5, likely stress response as noted, continue to trend. 3. Obesity; with BMI of 37.7 this admission complicating #1 & #2 - Weight loss will be recommended. Check TSH. This complicates his case and may hamper recovery. 4. History of EtOH use - Noted not to be significant with no recent EtOH Abuse. 5. DVT prophylaxis - SCD's only. [facility] Medical History no medical history Home Medications ?Medication ?Instructions ?Recorded ?Last Taken ?Type NK 08/28/24 Unknown History Allergy/AdvReac Type Severity Reaction Status Date / Time No Known Allergies Allergy Verified 07/09/18 00:02 Family History no significant family his Surgical History no surgical history Social History Smoking Status: Never smoker Vital Signs Vital Signs Vital Signs: 08/28/24 18:07 08/28/24 20:06 08/28/24 22:00 Temperature 96.5 F L Temperature Source Temporal Pulse Rate 135 H 111 H 102 H Respiratory Rate 19 H 17 20 H Blood Pressure 115/91 H 112/64 99/73 Blood Pressure Mean 99 80 81 Blood Pressure Source Blood Pressure Position Blood Pressure Location Pulse Ox 99 97 97 Oxygen Delivery Method Room Air Room Air Room Air 08/28/24 22:26 08/29/24 00:00 08/29/24 00:45 Temperature 97.9 F 96.5 F L Temperature Source Temporal Pulse Rate 102 H 111 H 95 Respiratory Rate 20 H 16 18 Blood Pressure 99/73 131/81 H 123/65 H Blood Pressure Mean 81 97 84 Blood Pressure Source Monitor Blood Pressure Position Semi-Fowlers Blood Pressure Location Right Forearm Pulse Ox 97 97 98 Oxygen Delivery Method Room Air 08/29/24 06:26 Temperature 97.8 F Temperature Source Oral Pulse Rate 91 Respiratory Rate 14 Blood Pressure 116/74 Blood Pressure Mean 88 Blood Pressure Source Monitor Blood Pressure Position Semi-Fowlers Blood Pressure Location Right Arm Pulse Ox 96 Oxygen Delivery Method Room Air Weight Weight: 285 lb 11.505 oz Body Mass Index (BMI) 37.7 Results Lab / Micro Data 08/29/24 06:20 08/29/24 06:20 Labs: Laboratory Results - last 24 hr 08/28/24 18:19: Urine Color Yellow, Urine Clarity Clear, Urine pH 6.0, Ur Specific [place] 1.020, Urine Protein 15 H, Urine Glucose (UA) 50 H, Urine Ketones Negative, Urine Occult Blood Negative, Urine Nitrite Negative, Urine Bilirubin Negative, Urine Urobilinogen Normal, Ur Leukocyte Esterase Negative, Urine RBC 0-5 SEEN, Urine WBC 0-5 SEEN, Ur Squamous Epith Cells 0 SEEN, Urine Bacteria 0 SEEN, Hyaline Casts 0-5 SEEN, Urine Mucus 1+ 08/28/24 18:52: POC Glucose 156 H 08/28/24 18:55: WBC 20.9 H, RBC 3.94 L, Hgb 12.5 L, Hct 36.7 L, MCV 93.1, MCH 31.7, MCHC 34.1, RDW Std Deviation 40.9, RDW Coeff of Ajit 12.0, Plt Count 421, MPV 9.2, Immature Gran % (Auto) 1.200 H, Neut % (Auto) 80.3 H, Lymph % (Auto) 12.4 L, [place] % (Auto) 5.4, Eos % (Auto) 0.3, Baso % (Auto) 0.4, Absolute Neuts (auto) 16.8 H, Absolute Lymphs (auto) 2.60, Nucleated RBC % 0, PT 13.6, INR 1.0, APTT 21.9 L, Sodium 139, Potassium 3.9, Chloride 107, Carbon Dioxide 26.0, Anion Gap 6, BUN 43 H, Creatinine 1.16, Est GFR (MDRD) Af Amer 90, Est GFR (MDRD) Non- Af 74, BUN/Creatinine Ratio 37.1 H, Glucose 162 H, Calcium 8.4 L, Total Bilirubin 0.50, Direct Bilirubin 0.14, AST 15, ALT 32, Alkaline Phosphatase 73, Troponin I High Sens 18, Total Protein 6.1 L, Albumin 3.2, Globulin 2.9, Lipase 14, Vitamin B12 484, Ethyl Alcohol < 3.0, Blood Type O POSITIVE, Antibody Screen NEGATIVE 08/28/24 19:05: Lactic Acid 2.3 H* 08/28/24 21:28: Iron 94, TIBC 256, Iron Saturation 36.7, Ferritin 156, Troponin I High Sens 26, Folate 8.80 08/28/24 22:55: WBC 16.3 H, RBC 3.48 L, Hgb 11.3 L, Hct 32.3 L, MCV 92.8, MCH 32.5 H, MCHC 35.0, RDW Std Deviation 40.9, RDW Coeff of Ajit 12.1, Plt Count 343, MPV 9.3, Hemoglobin A1c 5.0 08/28/24 23:28: Lactic Acid 1.2 08/29/24 06:20: WBC 11.5 H, RBC 3.12 L, Hgb 9.9 L, Hct 28.8 L, MCV 92.3, MCH 31.7, MCHC 34.4, RDW Std Deviation 40.6, RDW Coeff of Ajit 12.2, Plt Count 299, MPV 9.3, Immature Gran % (Auto) 1.100 H, Neut % (Auto) 68.9, Lymph % (Auto) 21.9, [place] % (Auto) 7.0, Eos % (Auto) 0.7, Baso % (Auto) 0.4, Absolute Neuts (auto) 7.9 H, Absolute Lymphs (auto) 2.52, Nucleated RBC % 0, PT 13.6, INR 1.0, APTT 24.9, Sodium 139, Potassium 3.8, Chloride 110 H, Carbon Dioxide 24.0, Anion Gap 5, BUN 30 H, Creatinine 0.70, Estim Creat Clear Calc 197.98, Est GFR (MDRD) Af Amer 159, Est GFR (MDRD) Non-Af 132, BUN/Creatinine Ratio 42.6 H, Glucose 103, Calcium 7.8 L, Phosphorus 2.3 L, Magnesium 1.7, Total Bilirubin 0.60, AST 16, ALT 25, Alkaline Phosphatase 55, Total Protein 5.2 L, Albumin 2.8 L, Globulin 2.4, Albumin/Globulin Ratio 1.2, TSH 0.596 Rhythm Strip Rhythm Strip: Sinus Rhythm Rate: 98 Ectopy: None Imaging Radiology Impression Brain CT 08/28/24 20:07 IMPRESSION: 1. Normal CT examination of brain 2. No intracranial evidence of acute traumatic injury. 3. No intracranial mass, hemorrhage or acute territorial infarct. 4. No radiographically significant sinus disease.. Electronically Signed: Michael Spangler MD at 21:13 EST , Chest/Abdomen/Pelvis CT 08/28/24 20:07 IMPRESSION: 1. No pulmonary infiltrate consolidation or effusion. No masses or adenopathy mediastinum or hilar regions. 2. Small hiatal hernia. 3. No bowel obstruction abscess free fluid or free air. No evidence diverticulitis or appendicitis. No bowel mass is noted. 4. No evidence of obstructive uropathy. 5. No evidence of cholelithiasis or duct dilatation. Electronically Signed: Michael Spangler MD at 21:39 EST ,
--- NOTE | 2024-08-29 08:49 | PN.HOSP_ITS ---
Reason for Visit Reason for Visit: Diagnoses Anemia, unspecified (08/28/24) Elevated white blood cell count, unspecified (08/28/24) Obesity, unspecified (08/28/24) Acidosis, unspecified (08/28/24) Melena (08/28/24) Syncope and collapse (08/28/24) Subjective Subjective Patient with no acute events overnight per self and per nursing report. Patient had no recurrent syncopal type sensation or events. Hemoglobin improved with PRBC administration to 9.9 this AM. 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 Patient currently noting he is very eager for discharge to go home and celebrate [place] with his family. Discussed at length concerns and follow-up needs and he is willing to be very diligent. Patient denies fevers, chills, nausea, emesis, abdominal pain, chest pain or dyspnea. Objective Data Objective Data Vital Signs: Vital Signs Temp Pulse Resp BP Pulse Ox O2 Del Method 97.8 F 91 14 116/74 96 Room Air 08/29/24 06:26 08/29/24 06:26 08/29/24 06:26 08/29/24 06:26 08/29/24 06:26 08/29/24 06:26 Oxygen Delivery Method Room Air Weight: 285 lb 11.505 oz Body Mass Index (BMI) 37.7 Intake & Output: Intake and Output for Last 24 Hours 08/27/24 08/28/24 08/29/24 23:59 23:59 23:59 Intake Total 2034 / 2034 1000 / 1000 Balance 2034 1000 / 1000 Lab / Micro Data 08/29/24 06:20 08/29/24 06:20 Labs: Laboratory Results - last 24 hr 08/28/24 18:19: Urine Color Yellow, Urine Clarity Clear, Urine pH 6.0, Ur Specific [place] 1.020, Urine Protein 15 H, Urine Glucose (UA) 50 H, Urine Ketones Negative, Urine Occult Blood Negative, Urine Nitrite Negative, Urine Bilirubin Negative, Urine Urobilinogen Normal, Ur Leukocyte Esterase Negative, Urine RBC 0-5 SEEN, Urine WBC 0-5 SEEN, Ur Squamous Epith Cells 0 SEEN, Urine Bacteria 0 SEEN, Hyaline Casts 0-5 SEEN, Urine Mucus 1+ 08/28/24 18:52: POC Glucose 156 H 08/28/24 18:55: WBC 20.9 H, RBC 3.94 L, Hgb 12.5 L, Hct 36.7 L, MCV 93.1, MCH 31.7, MCHC 34.1, RDW Std Deviation 40.9, RDW Coeff of Ajit 12.0, Plt Count 421, MPV 9.2, Immature Gran % (Auto) 1.200 H, Neut % (Auto) 80.3 H, Lymph % (Auto) 12.4 L, [place] % (Auto) 5.4, Eos % (Auto) 0.3, Baso % (Auto) 0.4, Absolute Neuts (auto) 16.8 H, Absolute Lymphs (auto) 2.60, Nucleated RBC % 0, PT 13.6, INR 1.0, APTT 21.9 L, Sodium 139, Potassium 3.9, Chloride 107, Carbon Dioxide 26.0, Anion Gap 6, BUN 43 H, Creatinine 1.16, Est GFR (MDRD) Af Amer 90, Est GFR (MDRD) Non- Af 74, BUN/Creatinine Ratio 37.1 H, Glucose 162 H, Calcium 8.4 L, Total Bilirubin 0.50, Direct Bilirubin 0.14, AST 15, ALT 32, Alkaline Phosphatase 73, Troponin I High Sens 18, Total Protein 6.1 L, Albumin 3.2, Globulin 2.9, Lipase 14, Vitamin B12 484, Ethyl Alcohol < 3.0, Blood Type O POSITIVE, Antibody Screen NEGATIVE 08/28/24 19:05: Lactic Acid 2.3 H* 08/28/24 21:28: Iron 94, TIBC 256, Iron Saturation 36.7, Ferritin 156, Troponin I High Sens 26, Folate 8.80 08/28/24 22:55: WBC 16.3 H, RBC 3.48 L, Hgb 11.3 L, Hct 32.3 L, MCV 92.8, MCH 32.5 H, MCHC 35.0, RDW Std Deviation 40.9, RDW Coeff of Ajit 12.1, Plt Count 343, MPV 9.3, Hemoglobin A1c 5.0 08/28/24 23:28: Lactic Acid 1.2 08/29/24 06:20: WBC 11.5 H, RBC 3.12 L, Hgb 9.9 L, Hct 28.8 L, MCV 92.3, MCH 31.7, MCHC 34.4, RDW Std Deviation 40.6, RDW Coeff of Ajit 12.2, Plt Count 299, MPV 9.3, Immature Gran % (Auto) 1.100 H, Neut % (Auto) 68.9, Lymph % (Auto) 21.9, [place] % (Auto) 7.0, Eos % (Auto) 0.7, Baso % (Auto) 0.4, Absolute Neuts (auto) 7.9 H, Absolute Lymphs (auto) 2.52, Nucleated RBC % 0, PT 13.6, INR 1.0, APTT 24.9, Sodium 139, Potassium 3.8, Chloride 110 H, Carbon Dioxide 24.0, Anion Gap 5, BUN 30 H, Creatinine 0.70, Estim Creat Clear Calc 197.98, Est GFR (MDRD) Af Amer 159, Est GFR (MDRD) Non-Af 132, BUN/Creatinine Ratio 42.6 H, Glucose 103, Calcium 7.8 L, Phosphorus 2.3 L, Magnesium 1.7, Total Bilirubin 0.60, AST 16, ALT 25, Alkaline Phosphatase 55, Total Protein 5.2 L, Albumin 2.8 L, Globulin 2.4, Albumin/Globulin Ratio 1.2, TSH 0.596 Radiography Diagnostic Testing: Radiology Impression Brain CT 08/28/24 20:07 IMPRESSION: 1. Normal CT examination of brain 2. No intracranial evidence of acute traumatic injury. 3. No intracranial mass, hemorrhage or acute territorial infarct. 4. No radiographically significant sinus disease.. Electronically Signed: Michael Spangler MD at 21:13 EST , Chest/Abdomen/Pelvis CT 08/28/24 20:07 IMPRESSION: 1. No pulmonary infiltrate consolidation or effusion. No masses or adenopathy mediastinum or hilar regions. 2. Small hiatal hernia. 3. No bowel obstruction abscess free fluid or free air. No evidence diverticulitis or appendicitis. No bowel mass is noted. 4. No evidence of obstructive uropathy. 5. No evidence of cholelithiasis or duct dilatation. Electronically Signed: Michael Spangler MD at 21:39 EST , Rhythm Strip Rhythm Strip: Sinus Rhythm Rate: 98 Ectopy: None Physical Exam Narrative Physical Examination: General: Awake, alert, oriented x 3 and cooperative, seated upright in the PCU bed in no apparent distress. Skin: Normal color, normal turgor, no icterus, no cyanosis. HEENT: AT/NC, EOMI, PERRLA, MMM. Lungs: CTA bilaterally, moderate effort, mild decrease BL bases, no rales, ronchi or wheezing. Heart: Regular rate and rhythm; no gallop, rub audible. Abdomen: Soft, obese, NTTP, ND, normal BS. Extremities: No cyanosis, clubbing, or edema. Neurological: Patient awake, alert, oriented as noted, cognitive function intact; pupils equally reactive to light and accommodation, cranial nerves grossly normal, moving all 4 extremities, no focal deficits, strength improved, mildly global decrease. Psychiatric: Affect appears fatigued otherwise normal, no acute evidence of depressive or anxiety feelings. Assessment & Plan Assessment/Plan (1) Acute anemia: (2) GI bleed: PLAN: Plan The patient is a 39 y/o M w/ PMHx: Obesity who presents to the [facility] ED on 08/28/2024 with melanotic stools abruptly starting earlier in the day on day of presentation with lightheadedness and syncopal event prompting ED evaluation. #1. 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 Following intervention GI allowance of full liquids. Hgb trending 12/5->11.3->08/29/24 Hgb 9.9. Discussing potential discharge with gastroenterology given patient's strong preference and they are amenable with follow-up in 1 week, continue twice daily high-dose PPI as well as PCP establishment with plan to repeat CBC, BMP as well as phosphorus levels outpatient given deficiency noted. #2. Leukocytosis, suspected secondary to stress response with #1: Admission w/ WBC 20.9, no evidence of any infection, 08/29/24 most recent repeat CBC w/ WBC 11.5, likely stress response as noted, continue to trend. #3. Lactic acidosis, likely secondary to #1: Admission LA 2.3, hydrated, repeat LA 1.2, resolved. #4. Acute kidney injury: Secondary to acute presentation as noted above #1. Admission BUN/Cr 43/1.16, GFR 74, hydrated, repeat 08/29/2024 creatinine 0.7, likely more baseline therefore presentation consistent with KRISTIN, continue to trend. #5. Hyperglycemia without Diabetic history: Admission Glucose 162, HgbA1c 5.0%. #6. Hypophosphatemia: Admission potassium 2.3, supplementation administered, repeat level in AM. #7. Obesity: Weight loss and lifestyle changes encouraged. TSH normal level. #8. DVT prophylaxis: SCDs. Charges/Coding Visit Charges Inpatient E&M: 14996 Subs Hosp L3
[2024-08-29] MEDS: 0.9% Normal Saline (1000mL) 1,000 ML 100 ML IV (09:54)
--- NOTE | 2024-08-29 10:49 | CASEMGMT ---
JANAE STEEN Assessment Face to Face with patient for initial transition planning/care coordination assessment. JANAE STEEN introduced self and role at [facility], pt voices understanding. Pt is A&Ox4 and is resting comfortably in bed and is calm. Care providers, pharmacy, and demographics verified. Admitting dx: Melena with Syncope LACE Strata: 1 PCP: No PCP. Provider list given Specialists: Denies Preferred Pharmacy[facility] Insurance: [employer] Prescription Benefit: Yes LNOK: Elly (W) Living Arrangements: Pt lives with his and 2 children (Ages 13 & 6) in a 2 story home with 3 steps to enter ADLs/IADLs: Ind Transportation: Self, DME: Denies all DME uses or needs HHC/SNF: Denies history or needs Pt?s goal: Return home Plan: home no needs. 6-click is 24. Pt denies further needs moving forward and states that he feels safe returning home with his family once he is medically ready. Pt states that he has not had any bloody stools today and denies lightheadedness or dizziness. Pt denies further questions or concern at this time. Report given to POTATO BUCKER CM. Wendy Stokes RN, CM
--- NOTE | 2024-08-29 11:03 | PRE.ANES_ITS ---
ASA Classification* ASA Classification ASA Classification: 2 Assessment & Plan Anesthesia* Anesthesia Assessment Anesthesia Assessment: Discussed sedation and/or anesthesia options, risks, benefits, and alternatives with patient/parents/legal guardian/POA. Questions invited. The patient/parents/legal guardian/POA seems to understand and agrees to proceed with anesthesia plan. Reviewed the physical assessment, medical history, allergy history and patient home medications list prior to surgery/procedure/anesthetic and documented any changes. Performed airway and anesthesia risk assessments. Anesthesia Type Anesthesia Type: MAC History Source History Obtained from:: Patient and Chart Anesthesia Focused Assessment* Temperature: 97.5 F Pulse Rate: 85 Blood Pressure: 120/59 Respiratory Rate: 18 Pulse Ox: 99 Oxygen Delivery Method: Room Air Airway Assessment Mouth opens: >3 cm Mallampati Score: I Teeth Condition: Caps/Crowns (Patient has several crowns. They are all tight.) Neck Range of motion (ROM): Limited ROM (Somewhat decreased extension.) Focused Labs Anesthesia Preop lab: CBC WBC 11.5 K/mm3 (4.4-11.0) H 08/29/24 06:20 RBC 3.12 M/mm3 (4.6-6.2) L 08/29/24 06:20 Hgb 9.9 g/dL (13.0-16.5) L 08/29/24 06:20 Hct 28.8 % (40-54) L 08/29/24 06:20 Plt Count 299 K/mm3 (150-450) 08/29/24 06:20 CHEMISTRY Potassium 3.8 mmol/L (3.5-5.1) 08/29/24 06:20 Sodium 139 mmol/L (136-145) 08/29/24 06:20 Magnesium 1.7 mg/dL (1.6-2.6) 08/29/24 06:20 Phosphorus 2.3 mg/dL (2.5-4.9) L 08/29/24 06:20 BUN 30 mg/dL (7-18) H 08/29/24 06:20 Creatinine 0.70 mg/dL (0.70-1.30) 08/29/24 06:20 Glucose 103 mg/dL (74-106) 08/29/24 06:20 POC Glucose 156 mg/dL (74-106) H 08/28/24 18:52 TSH 0.596 uIU/mL (0.358-3.740) 08/29/24 06:20 COAG PT 13.6 SECONDS (11.7-14.9) 08/29/24 06:20 Pre-Assessment Diagnosis/Proposed Procedure Planned Operative Procedure(s): Esophagogastroduodenoscopy with possible biopsies Anesthesia History Anesthesia History - last sawyer: Anesthesia History - last sawyer Hx Hospitalization Any Problems With Anesthesia No 08/29/24 09:56 Cholinesterase deficiency No 08/29/24 09:56 You/Your Family Experience No 08/29/24 09:56 fever (hyperthermia) with Relationship Recent Exposure to Contagious No 08/29/24 09:56 Disease Does patient have nerve No 08/29/24 09:56 stimulator Patient instructed to have No 08/29/24 09:56 device shut off --Does patient have Pacemaker No 08/29/24 09:56 or ICD? When Was Last Pacemaker Check QUESTION #4 FULL TEXT: You/Your Family Experience fever (hyperthermia) with Anesthesia Last Oral Intake Last Oral intake: Last Oral Intake NPO since 00:00 08/29/24 09:56 Meds taken in AM with sips of No 08/29/24 09:56 water? Meds patient instructed to take am of surgery PONV PONV - last sawyer: PONV - last sawyer Female HX of Motion Sickness HX of N/V After Surgery Non-Smoker Duration of Surgery greater than 60 minutes Number of Risk Factors PONV Score Height & Weight Height & Weight: Anesthesia: Height & Weight Height 6 ft 1 in 08/29/24 09:56 Weight: 129.6 kg 08/29/24 09:56 Body Mass Index (BMI) 37.7 08/29/24 09:56 Respiratory Assessment Respiratory Assessment - last sawyer: Respiratory Tract Infection Hx - last sawyer Hx Respiratory Tract Infection No 08/29/24 09:56 Any additional information?: Yes Hx Respiratory Tract Infection: Yes (Patient states he has a stuffy nose right now. Lungs are clear.) STOP Sleep Apnea STOP Sleep Apnea - last sawyer: STOP Sleep Apnea - last sawyer Hx Hypertension No 08/29/24 00:52 Hx Sleep Apnea No 08/29/24 00:52 CPAP BIPAP Do you snore loudly (louder No 08/29/24 00:52 than talking or can be heard Do you often feel tired/ No 08/29/24 00:52 fatigued/ sleepy during daytime? Has anyone observed you stop No 08/29/24 00:52 breathing during sleep? STOP Results Negative 08/29/24 00:52 QUESTION #5 FULL TEXT : Do you snore loudly (louder than talking or can be heard through closed doors)? 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 Specify any problems Hx of Preganancy in last 3 N/A 08/29/24 00:52 Months Nurse Filling Out Transfusion RMAIBACH 08/29/24 00:52 & Questions: Date: 08/29/24 08/29/24 00:52 Time: 00:54 08/29/24 00:52 Patient unable to answer at this time (ie. confused, unrespo /Reproduction History /Reproductive History - last sawyer: /Reproductive Hx- last sawyer Hx Now No 08/29/24 09:56 Gestational Age (in weeks): EDC: Hx Hx Para Hx Section SAB Active Medications Active Medications: Current Medications Generic Name Dose Route Start Last Admin Trade Name Freq PRN Reason Stop Dose Admin Pantoprazole Sodium 80 mg/ 100 mls @ 10 mls/hr 08/29/24 00:36 08/29/24 01:38 Sodium Chloride CONT INF 10 mls/hr Q10H SHRAVAN Administration Sodium Chloride 100 mls @ 15 mls/hr 08/29/24 00:41 IV .Q6H40M PRN Saline Flush Sodium Chloride 100 mls @ 15 mls/hr 08/29/24 00:41 IV .Q6H40M PRN Additional IVPB Infusion Sodium Chloride 1,000 mls @ 100 mls/hr 08/29/24 09:05 08/29/24 09:54 IV 08/29/24 19:04 100 mls/hr .Q10H SHRAVAN Administration Protocol Sodium Phosphate 21 mmol/ 257 mls @ 84 mls/hr 08/29/24 09:30 Sodium Chloride IV 08/29/24 12:33 X1 ONE Iopamidol 0 ml 08/28/24 19:00 08/28/24 20:30 Contrast Allergy Safety Check IV Not Given X1 SHRAVAN Morphine Sulfate 2 mg 08/29/24 00:36 Morphine 2 Mg/Ml Syringe IV Q4H PRN PRN Pain Score 6-10 Ondansetron HCl 4 mg 08/29/24 00:36 Ondansetron 4 Mg/2 Ml Vial IV Q4H PRN PRN NAUSEA/VOMITING Promethazine HCl 12.5 mg 08/29/24 00:36 Promethazine 25 Mg/Ml Syringe IM Q4H PRN PRN BREAKTHROUGH NAUSEA Sodium Chloride 10 - 40 ml 08/29/24 00:41 0.9% Saline Lock 10 Ml Syringe IV UD PRN SALINE FLUSH PFSH Medical History no medical history Home Medications ?Medication ?Instructions ?Recorded ?Last Taken ?Type NK 08/28/24 Unknown History Allergy/AdvReac Type Severity Reaction Status Date / Time No Known Allergies Allergy Verified 07/09/18 00:02 Family History no significant family his Surgical History no surgical history Social History Smoking Status: Never smoker Review of Systems (Anesthesia) ROS Narrative System reviewed and no additional complaints, except as documented.
--- NOTE | 2024-08-29 11:48 | CON.PCM.GI_ITS ---
HPI Consult Data Date of Consult: 08/29/24 HPI Narrative Reason for Consultation: GI bleeding HPI Narrative: BRANT STALLWORTH, is a 39 M with a past medical history of obesity; with BMI of 37.7 this admission and history of EtOH use who presents to [facility] ER complaining of melanotic stools. Mr. Stallworth reports his symptoms began earlier today with the abrupt-onset of melanotic stools. He states he had eight dark bloody BM's prior to arrival followed by two more after arrival. He admits to lightheadedness with a witnessed syncopal event in the ER shortly after arrival. He also admits to coughing up a small amount of blood but he denies taking blood thinners, known history of PUD, similar previous episodes or a family history of GI bleeding or GI malignancy. He is currently on no medications. He admits to lightheadedness and sweats along with increased life- stress but he denies significant EtOH use, fever, chills, nausea, vomiting or abdominal pain. In the ER he was diagnosed with suspected UGIB with melanotic stools likely due to PUD complicated by Syncope suspected to be due to ABLA with a hemoglobin of 12.5 g/dL and BUN of 43 mg/dL with serum creatinine of 1.16 mg/dL present on admission complicated by Leukocytosis of 20.9K with Left-shift of 1.2% and Lactic Acidosis of 2.3 mmol/ PFSH Medical History no medical history Home Medications ?Medication ?Instructions ?Recorded ?Last Taken ?Type NK 08/28/24 Unknown History Allergy/AdvReac Type Severity Reaction Status Date / Time No Known Allergies Allergy Verified 07/09/18 00:02 Family History no significant family his Surgical History no surgical history Social History Smoking Status: Never smoker ROS ROS Narrative Review of Systems: Constitutional: Patient admits to lightheadedness and sweats but he denies fever or chills. Eyes: Patient denies changes in vision or discharge from eyes. ENT: Patient denies runny nose, sore throat or ear pain. Resp: Patient admits to cough with bloody sputum but he denies SOB. CV: Patient admits to syncopal event in ER. He denies chest pain or palpitations. GI: Patient admits to numerous melanotic stools as per HPI but he denies abdominal pain, nausea or vomiting. : Patient denies dysuria or hematuria. MSK: Patient denies arthralgias or myalgias. Skin: Patient denies rash, abscess or jaundice. Psych: Patient admits to increased life stress but he denies symptoms of uncontrolled depression or anxiety. Neuro: Patient denies headache, paresthesias or focal neurologic deficits. Allergy: Patient denies lip swelling, tongue swelling or urticaria. Hematology: Patient admits to numerous melanotic stools as per HPI. Endocrinology: Patient denies polyuria, polydipsia or polyphagia. 14 point ROS otherwise negative except for positives noted above in HPI. Physical Exam Const alert, oriented x3, no apparent distress, average body habitus and healthy appearing General Appearance: cooperative HEENT normocephalic, head/scalp atraumatic, hearing grossly normal bilaterally and moist oral mucous membranes Eyes PERRL and EOMs intact bilaterally Neck no lymphadenopathy and supple Resp normal respiratory effort, no retractions, no use of accessory muscles and clear to auscultation bilaterally Cardio regular rate and regular rhythm GI normal to inspection, nondistended, normoactive bowel sounds, soft to palpation, non-tender and non-distended Extremity normal to inspection and full ROM Skin Skin Narrative: Patient has numerous tattoos but he has no evidence of rash, abscess or jaundice. Neuro oriented x3, CN's II-XII intact bilaterally, moves all extremities and no focal motor deficits Sensorium / Orientation: awake, alert, oriented to person, oriented to place and oriented to time Speech: speech normal Psych affect normal Lab / Micro Data 08/29/24 06:20 08/29/24 06:20 Labs: Laboratory Results - last 24 hr 08/28/24 18:19: Urine Color Yellow, Urine Clarity Clear, Urine pH 6.0, Ur Specific [place] 1.020, Urine Protein 15 H, Urine Glucose (UA) 50 H, Urine Ketones Negative, Urine Occult Blood Negative, Urine Nitrite Negative, Urine Bilirubin Negative, Urine Urobilinogen Normal, Ur Leukocyte Esterase Negative, Urine RBC 0-5 SEEN, Urine WBC 0-5 SEEN, Ur Squamous Epith Cells 0 SEEN, Urine Bacteria 0 SEEN, Hyaline Casts 0-5 SEEN, Urine Mucus 1+ 08/28/24 18:52: POC Glucose 156 H 08/28/24 18:55: WBC 20.9 H, RBC 3.94 L, Hgb 12.5 L, Hct 36.7 L, MCV 93.1, MCH 31.7, MCHC 34.1, RDW Std Deviation 40.9, RDW Coeff of Ajit 12.0, Plt Count 421, MPV 9.2, Immature Gran % (Auto) 1.200 H, Neut % (Auto) 80.3 H, Lymph % (Auto) 12.4 L, [place] % (Auto) 5.4, Eos % (Auto) 0.3, Baso % (Auto) 0.4, Absolute Neuts (auto) 16.8 H, Absolute Lymphs (auto) 2.60, Nucleated RBC % 0, PT 13.6, INR 1.0, APTT 21.9 L, Sodium 139, Potassium 3.9, Chloride 107, Carbon Dioxide 26.0, Anion Gap 6, BUN 43 H, Creatinine 1.16, Est GFR (MDRD) Af Amer 90, Est GFR (MDRD) Non- Af 74, BUN/Creatinine Ratio 37.1 H, Glucose 162 H, Calcium 8.4 L, Total Bilirubin 0.50, Direct Bilirubin 0.14, AST 15, ALT 32, Alkaline Phosphatase 73, Troponin I High Sens 18, Total Protein 6.1 L, Albumin 3.2, Globulin 2.9, Lipase 14, Vitamin B12 484, Ethyl Alcohol < 3.0, Blood Type O POSITIVE, Antibody Screen NEGATIVE 08/28/24 19:05: Lactic Acid 2.3 H* 08/28/24 21:28: Iron 94, TIBC 256, Iron Saturation 36.7, Ferritin 156, Troponin I High Sens 26, Folate 8.80 08/28/24 22:55: WBC 16.3 H, RBC 3.48 L, Hgb 11.3 L, Hct 32.3 L, MCV 92.8, MCH 32.5 H, MCHC 35.0, RDW Std Deviation 40.9, RDW Coeff of Ajit 12.1, Plt Count 343, MPV 9.3, Hemoglobin A1c 5.0 08/28/24 23:28: Lactic Acid 1.2 08/29/24 06:20: WBC 11.5 H, RBC 3.12 L, Hgb 9.9 L, Hct 28.8 L, MCV 92.3, MCH 31.7, MCHC 34.4, RDW Std Deviation 40.6, RDW Coeff of Ajit 12.2, Plt Count 299, MPV 9.3, Immature Gran % (Auto) 1.100 H, Neut % (Auto) 68.9, Lymph % (Auto) 21.9, [place] % (Auto) 7.0, Eos % (Auto) 0.7, Baso % (Auto) 0.4, Absolute Neuts (auto) 7.9 H, Absolute Lymphs (auto) 2.52, Nucleated RBC % 0, PT 13.6, INR 1.0, APTT 24.9, Sodium 139, Potassium 3.8, Chloride 110 H, Carbon Dioxide 24.0, Anion Gap 5, BUN 30 H, Creatinine 0.70, Estim Creat Clear Calc 197.98, Est GFR (MDRD) Af Amer 159, Est GFR (MDRD) Non-Af 132, BUN/Creatinine Ratio 42.6 H, Glucose 103, Calcium 7.8 L, Phosphorus 2.3 L, Magnesium 1.7, Total Bilirubin 0.60, AST 16, ALT 25, Alkaline Phosphatase 55, Total Protein 5.2 L, Albumin 2.8 L, Globulin 2.4, Albumin/Globulin Ratio 1.2, TSH 0.596 Rhythm Strip Rhythm Strip: Sinus Rhythm Rate: 98 Ectopy: None Imaging Radiology Impression Brain CT 08/28/24 20:07 IMPRESSION: 1. Normal CT examination of brain 2. No intracranial evidence of acute traumatic injury. 3. No intracranial mass, hemorrhage or acute territorial infarct. 4. No radiographically significant sinus disease.. Electronically Signed: Michael Spangler MD at 21:13 EST , Chest/Abdomen/Pelvis CT 08/28/24 20:07 IMPRESSION: 1. No pulmonary infiltrate consolidation or effusion. No masses or adenopathy mediastinum or hilar regions. 2. Small hiatal hernia. 3. No bowel obstruction abscess free fluid or free air. No evidence diverticulitis or appendicitis. No bowel mass is noted. 4. No evidence of obstructive uropathy. 5. No evidence of cholelithiasis or duct dilatation. Electronically Signed: Michael Spangler MD at 21:39 EST , Assessment & Plan Assessment/Plan (1) Melena: (2) Acute anemia: (3) Syncope and collapse: (4) Leukocytosis: QUALIFIERS: Leukocytosis type: unspecified Qualified Code(s): D 72.829 - Elevated white blood cell count, unspecified (5) Lactic acidosis: (6) Obesity (BMI 30-39.9): PLAN: Plan 39-year-old gentleman presents with hematemesis and melanotic stools likely secondary to UGIB with melanotic stools likely due to PUD complicated by Syncope suspected to be due to ABLA with a hemoglobin of 12.5 g/dL and BUN of 43 mg/dL with serum creatinine of 1.16 mg/dL present on admission. He had received PPI therapy. He has been on IV fluids and he initially was hypotensive but currently is not at this time. He is also not tachycardic anymore. This is a good sign. He will need to undergo an upper endoscopy to evaluate his upper GI tract for source of GI bleed. Charges/Coding Visit Charges Inpatient E&M: 13865 Init Hosp L3
--- NOTE | 2024-08-29 13:12 | OP.EGD_ITS ---
Patient Name: Hi Claire Procedure Date: 08/29/2024 12:46 PM Date of : 1985 Age: 39 Procedure: Upper GI endoscopy Indications: Melena, Recent gastrointestinal bleeding, Suspected upper gastrointestinal bleeding Providers: Houston Greenwood DO Referring MD: Mac Jaimes Do Medicines: Monitored Anesthesia Care Patient Profile: This is a 39 year old male. Refer to note in patient chart for documentation of history and physical. Patient has symptoms of acute vomiting. Complications: No immediate complications. Procedure: Pre-Anesthesia Assessment: - Prior to the procedure, a History and Physical was performed, and patient medications and allergies were reviewed. The patient is competent. The risks and benefits of the procedure and the sedation options and risks were discussed with the patient. All questions were answered and informed consent was obtained. Patient identification and proposed procedure were verified by the physician in the pre-procedure area. Mental Status Examination: alert and oriented. Airway Examination: normal oropharyngeal airway and neck mobility. Respiratory Examination: clear to auscultation. CV Examination: normal. Prophylactic Antibiotics: The patient does not require prophylactic antibiotics. Prior Anticoagulants: The patient has taken no anticoagulant or antiplatelet agents. ASA Grade Assessment: II - A patient with mild systemic disease. After reviewing the risks and benefits, the patient was deemed in satisfactory condition to undergo the procedure. The anesthesia plan was to use monitored anesthesia care (MAC). Immediately prior to administration of medications, the patient was re-assessed for adequacy to receive sedatives. The heart rate, respiratory rate, oxygen saturations, blood pressure, adequacy of pulmonary ventilation, and response to care were monitored throughout the procedure. The physical status of the patient was re-assessed after the procedure. After obtaining informed consent, the endoscope was passed under direct vision. Throughout the procedure, the patient's blood pressure, pulse, and oxygen saturations were monitored continuously. The gastroscope was introduced through the mouth, and advanced to the second part of duodenum. The upper GI endoscopy was accomplished without difficulty. The patient tolerated the procedure well. Scope In: 12:56:43 PM Scope Out: 1:04:03 PM Total Procedure Duration Time 0 hours 7 minutes 20 seconds Findings: LA Grade B (one or more mucosal breaks greater than 5 mm, not extending between the tops of two mucosal folds) esophagitis with no bleeding was found 36 to 40 cm from the incisors. Hematin (altered blood/yqwgqn-snhtdl-grrw material) was found in the gastric body. Two 7 mm angiodysplastic lesions with bleeding were found in the duodenal bulb. Coagulation for hemostasis using heater probe was successful. Estimated blood loss was minimal. Impression: - LA Grade B erosive esophagitis with no bleeding. - Hematin (altered blood/lfqrog-dubxgt-jjtp material) in the gastric body. - Two bleeding angiodysplastic lesions in the duodenum. Treated with a heater probe. - No specimens collected. Recommendation: - [facility]. - Full liquid diet today. - Continue present medications. Procedure Code(s): --- Professional --- 34609, Esophagogastroduodenoscopy, flexible, transoral; with control of bleeding, any method CPT copyright 2021 [employer]. All rights reserved. The codes documented in this report are preliminary and upon net developer contract review may be revised to meet current compliance requirements. Houston Greenwood DO 08/29/2024 1:11:42 PM This report has been signed electronically. Number of Addenda: 0 Note Initiated On: 08/29/2024 12:46 PM
--- NOTE | 2024-08-29 13:12 | OP.CCLET_ITS ---
08/29/2024 No Primary Care Physician Re : Upper GI endoscopy procedure for Hi Claire Dear Care Physician This procedure was performed on Thursday, August 29, 2024. My impressions and recommendations are as follows: Impressions : - LA Grade B erosive esophagitis with no bleeding. - Hematin (altered blood/yzjhec-xulbhy-lagd material) in the gastric body. - Two bleeding angiodysplastic lesions in the duodenum. Treated with a heater probe. - No specimens collected. Recommendations : - [facility] to [facility]. - Full liquid diet today. - Continue present medications. My findings are described in the full procedure note, which is enclosed. If I can be of further assistance, please feel free to contact me at . Sincerely, Houston Friend, 08/29/2024 1:11:42 PM This report has been signed electronically.
--- NOTE | 2024-08-29 13:12 | PCM.POST.ANE ---
Anesthesia: Postop Eval I Current Vital Signs Temperature: 97.1 F Pulse Rate: 96 Blood Pressure: 100/59 Respiratory Rate: 16 Pulse Ox: 96 Oxygen Delivery Method: Room Air Assessment Airway patent: Yes Spontaneous unlabored respirations: Yes Mental status: Awake and Calm nausea: No Vomiting: No Anesthesia Complication: No Fluid Hydration Crystalloid volume administer (ml): 30 Total IV fluid infused: 30 Progress Note Anesthesia document: Postop Eval 1 completed: Yes
[2024-08-29] MEDS: Sodium Phosphate/Na Biphos 21 MMOL in 0.9% Normal Saline (250mL Bag) 250 ML 84 MMOL IV (13:24)
--- NOTE | 2024-08-29 15:13 | PCM.POSTANE2 ---
Anesthesia Postop Eval I Sum Postop Eval Completion status Anesthesia document: Postop Eval 1 completed: Yes Anesthesia Postop Eval I Summary Anesthesia Postop Eval I Summary: Anesthesia Postop Eval I: Assessment Summary Airway patent Yes 08/29/24 13:12 [email or web address] Spontaneous unlabored Yes 08/29/24 13:12 [email or web address] respirations Mental status Awake,Calm 08/29/24 13:12 [email or web address] nausea No 08/29/24 13:12 [email or web address] Vomiting No 08/29/24 13:12 [email or web address] Anesthesia Postop Eval I: Fluid Summary Crystalloid volume administer 30 08/29/24 13:12 [email or web address] (ml) Colloids volume administered ( ml) Blood Product volume administered (ml) Total IV fluid infused 30 08/29/24 13:12 [email or web address] Anesthesia Postop Eval I: Summary Notes Anesthesia Complication No 08/29/24 13:12 [email or web address] Anesthesia Complication Comment: Post-operative progress note Anesthesia: Postop Eval II Evaluation Mental status: Awake and Calm Pain Level: 0 nausea: No Vomiting: No Complications Anesthesia Complication: No
--- NOTE | 2024-08-29 16:55 | DCINST_ITS ---
Discharge Instructions Diet Discharge Diet: - (Continue Full liquid diet for the next 24 hours and then may transition to regular diet.) DC O2, CPAP, BIPAP needs Home O2 Discharge instructions: No Dressing / Incision Discharge Activity: - (Maintain moderate activity only until re-evaluation by primary care/GI.) May resume sexual activity in: 10-14 days Weight Bearing Status: Weight bearing as tolerated Dressing / Incision Call your doctor if you observe: Fever of 101 or Higher, Inability to have a bowel movement, Shortness of breath, Dizziness, Chest pain, Increased palpitations (irregular heartbeat), Calf discomfort, Uncontrolled pain and - (Recurrent significantly worsening black tarry stools. May still be dark but should not be worsening. Additionally, if you have any lightheadedness/dizziness.) Follow Up Care Test Results: Test results from this visit will be discussed in further detail at your follow- up appointment, if applicable. Discharge Plan Admission Admit Date/Time: 08/28/24 23:14 Primary Reason for Your Visit: ABLA, GI bleed, KRISTIN Attending Provider: Lorelei Ackerman Primary Care Provider: Care Physician,No Primary Consulting Providers: Mac Keen Instructions Patient Instructions: GI Bleeding Causes and Tests, ED Upper GI Bleeding (Stable) Additional Instructions / Restrictions: ADDITIONAL DISCHARGE INSTRUCTIONS/CARE PLAN: #1. 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 --GI consulted with 08/25/2024 upper endoscopy with LA grade B esophagitis with no bleeding, hematin in the gastric body noted, two 7 mm angiodysplastic lesions with bleeding found in the duodenal bulb with coagulation for hemostasis using heater probe successful with EBL minimal with recommended allowance of full liquid diet and continued PPI. --Following intervention GI allowance of full liquids with recommended slow diet advancement to regular diet over the next 24 hours. --GI requested follow-up in 1 week, continued twice daily high-dose PPI as well as PCP establishment with plan to repeat CBC (complete blood count), BMP (basic metabolic panel) as well as phosphorus levels outpatient given deficiency noted. --AVOID alcohol until re-evaluation with GI and if it is resumed it needs to be only occasionally. --AVOID all NSAIDs (ASA, ibuprofen, naproxen). #2. Leukocytosis (elevated white cell count on labs), suspected secondary to stress response with #1: --Admission w/ WBC 20.9, no evidence of any infection, 08/29/24 most recent repeat CBC w/ WBC 11.5, likely stress response as noted. --Plan as noted follow-up CBC (complete blood count) outpatient with primary care. #3. Lactic acidosis, likely secondary to #1: --Admission LA 2.3, likely secondary to acute GI bleed/volume loss. Patient hydrated, repeat LA 1.2, resolved. #4. Acute kidney injury: --Secondary to acute presentation as noted above #1 with decreased perfusion secondary to GI bleed. --Admission BUN/Cr 43/1.16, GFR 74, hydrated, repeat 08/29/2024 creatinine 0.7, likely more baseline therefore presentation consistent with KRISTIN. --Plan as noted follow-up BMP (basic metabolic panel) outpatient with primary care. #5. Hyperglycemia without Diabetic history: --Admission Glucose 162, concern for possible underlying diabetes versus stress response, thus obtained HgbA1c noted to be 5.0%. Likely stress response given this normal level. #6. Hypophosphatemia: --Admission potassium 2.3, supplementation administered. --Plan to repeat phosphorus levels outpatient given deficiency noted. Discharge Orders/Prescriptions Prescriptions: New pantoprazole [Protonix] 40 mg tablet,delayed release (DR/EC) 40 mg PO BID 60 Days Qty: 120 0RF ferrous gluconate 324 mg (38 mg iron) tablet 324 mg PO DAILY Qty: 30 0RF Referrals / Follow Up: Kota Lobato MD [Med Staff - Active Staff] - (Please follow-up within 1 week to review admission. Please have repeat CBC, BMP and phos level with your primary care physician.) Friend,DO [place] [Med Staff - Active Staff] - (Follow-up in 1 week.) Disposition Disposition (needs filled in before D/C Order can be placed): Home, Self Care
--- NOTE | 2024-08-29 16:59 | DS.PCM_ITS ---
Providers Date of Admission: 08/28/24 Date of Discharge: 08/29/24 Primary Care Physician: Velia Primary Care Phys Consultations 08/29/24 00:36 Consult: Gastroenterology Routine Consulting Provider: Jeremy Gastroenterology Reason for Consult: UGIB with Melena and Syncope. EMERGENT Consult: No MD Notified: Yes Date Notified: 08/28/24 Time Notified: 23:17 Method of Notification: ED Physician Initiated Reason For Visit: MELANTIC STOOLS WITH SYNCOPE Diagnosis Discharge Diagnosis (1) Acute anemia: Status: Acute Code(s): D64.9 - Anemia, unspecified (2) GI bleed: Status: Acute Code(s): K92.2 - Gastrointestinal hemorrhage, unspecified Plan: DISCHARGE DIAGNOSES: #1. 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 Leukocytosis, stress response, secondary to stress response with #1, resolved #3. Lactic acidosis, secondary to #1 w/ suspected hypoperfusion/volume loss, resolved #4. Acute kidney injury, secondary to acute presentation as noted above #1with associated hypoperfusion/volume loss #5. Hyperglycemia without Diabetic history, likely stress response w/ HgbA1c 5.0% #6. Hypophosphatemia #7. Obesity Medications at Discharge Home Medications ferrous gluconate 324 mg (38 mg iron) tablet 324 mg PO DAILY #30 tabs 08/29/24 pantoprazole 40 mg tablet,delayed release (Protonix) 40 mg PO BID 60 days #120 tabs 08/29/24 Hospital Course Operations None Procedures EKG Summary of Care Provided Minutes Spent on Discharge: 35 Hospital Course: The patient is a 39 y/o M w/ PMHx: Obesity who presented to the [facility] ED on 08/28/2024 with melanotic stools abruptly starting earlier in the day on day of presentation with lightheadedness and syncopal event prompting ED evaluation. Admission Hgb 12.5, admitted to PCU, continued to trend HHs, administer PRBC as needed if Hgb drops </= 7 or symptomatic, initially maintained NPO status, maintain on IV PPI, GI consulted with 08/25/2024 upper endoscopy with LA grade B esophagitis with no bleeding, hematin in the gastric body noted, two 7 mm angiodysplastic lesions with bleeding found in the duodenal bulb with coagulation for hemostasis using heater probe successful with EBL minimal with recommended allowance of full liquid diet and continued PPI. Following intervention GI allowance of full liquids. Hgb trending 12->11.3->08/29/24 Hgb 9.9. 08/29/24 evening, given patient/family preference discussed status with Dr. Krystyna MACHADO who was amenable to discharge with follow-up in 1 week, continued twice daily high-dose PPI as well as PCP establishment with plan to repeat CBC, BMP as well as phosphorus levels outpatient given deficiency noted. Admission w/ WBC 20.9, no evidence of any infection, 08/29/24 most recent repeat CBC w/ WBC 11.5, likely stress response as noted. Admission LA 2.3, hydrated, secondary to volume loss/hypoperfusion, repeat LA 1.2, resolved. During admission patient with acute kidney injury with Admission BUN/Cr 43/1.16, GFR 74, hydrated, repeat 08/29/2024 creatinine 0.7, likely more baseline therefore presentation consistent with KRISTIN likely secondary to hypoperfusion secondary to GI bleed with volume loss is noted. Additionally during admission patient with glucose 162, hemoglobin C obtained and noted to be normal 5.0%, likely stress response. Patient discharged in stable improved condition with continue full liquids for the next 24 hours then diet advancement with continued high-dose PPI and iron supplementation with follow-up with gastroenterology in 1 week, follow-up with primary care physician in 1 week with follow-up CBC, BMP and phosphorus levels with primary care. Did discuss patient with his primary care physician Dr. Kota Lobato to assure follow-up given discharge on evening with office already closed for the day. Weight / BMI Weight Weight: 285 lb 11.505 oz Body Mass Index (BMI) 37.7 ABG / Lab / Microbiology Data 08/29/24 06:20 08/29/24 06:20 Laboratory: Laboratory Results - last 24 hr 08/28/24 18:19: Urine Color Yellow, Urine Clarity Clear, Urine pH 6.0, Ur Specific [place] 1.020, Urine Protein 15 H, Urine Glucose (UA) 50 H, Urine Ketones Negative, Urine Occult Blood Negative, Urine Nitrite Negative, Urine Bilirubin Negative, Urine Urobilinogen Normal, Ur Leukocyte Esterase Negative, Urine RBC 0-5 SEEN, Urine WBC 0-5 SEEN, Ur Squamous Epith Cells 0 SEEN, Urine Bacteria 0 SEEN, Hyaline Casts 0-5 SEEN, Urine Mucus 1+ 08/28/24 18:52: POC Glucose 156 H 08/28/24 18:55: WBC 20.9 H, RBC 3.94 L, Hgb 12.5 L, Hct 36.7 L, MCV 93.1, MCH 31.7, MCHC 34.1, RDW Std Deviation 40.9, RDW Coeff of Ajit 12.0, Plt Count 421, MPV 9.2, Immature Gran % (Auto) 1.200 H, Neut % (Auto) 80.3 H, Lymph % (Auto) 12.4 L, [place] % (Auto) 5.4, Eos % (Auto) 0.3, Baso % (Auto) 0.4, Absolute Neuts (auto) 16.8 H, Absolute Lymphs (auto) 2.60, Nucleated RBC % 0, PT 13.6, INR 1.0, APTT 21.9 L, Sodium 139, Potassium 3.9, Chloride 107, Carbon Dioxide 26.0, Anion Gap 6, BUN 43 H, Creatinine 1.16, Est GFR (MDRD) Af Amer 90, Est GFR (MDRD) Non- Af 74, BUN/Creatinine Ratio 37.1 H, Glucose 162 H, Calcium 8.4 L, Total Bilirubin 0.50, Direct Bilirubin 0.14, AST 15, ALT 32, Alkaline Phosphatase 73, Troponin I High Sens 18, Total Protein 6.1 L, Albumin 3.2, Globulin 2.9, Lipase 14, Vitamin B12 484, Ethyl Alcohol < 3.0, Blood Type O POSITIVE, Antibody Screen NEGATIVE 08/28/24 19:05: Lactic Acid 2.3 H* 08/28/24 21:28: Iron 94, TIBC 256, Iron Saturation 36.7, Ferritin 156, Troponin I High Sens 26, Folate 8.80 08/28/24 22:55: WBC 16.3 H, RBC 3.48 L, Hgb 11.3 L, Hct 32.3 L, MCV 92.8, MCH 32.5 H, MCHC 35.0, RDW Std Deviation 40.9, RDW Coeff of Ajit 12.1, Plt Count 343, MPV 9.3, Hemoglobin A1c 5.0 08/28/24 23:28: Lactic Acid 1.2 08/29/24 06:20: WBC 11.5 H, RBC 3.12 L, Hgb 9.9 L, Hct 28.8 L, MCV 92.3, MCH 31.7, MCHC 34.4, RDW Std Deviation 40.6, RDW Coeff of Ajit 12.2, Plt Count 299, MPV 9.3, Immature Gran % (Auto) 1.100 H, Neut % (Auto) 68.9, Lymph % (Auto) 21.9, [place] % (Auto) 7.0, Eos % (Auto) 0.7, Baso % (Auto) 0.4, Absolute Neuts (auto) 7.9 H, Absolute Lymphs (auto) 2.52, Nucleated RBC % 0, PT 13.6, INR 1.0, APTT 24.9, Sodium 139, Potassium 3.8, Chloride 110 H, Carbon Dioxide 24.0, Anion Gap 5, BUN 30 H, Creatinine 0.70, Estim Creat Clear Calc 197.98, Est GFR (MDRD) Af Amer 159, Est GFR (MDRD) Non-Af 132, BUN/Creatinine Ratio 42.6 H, Glucose 103, Calcium 7.8 L, Phosphorus 2.3 L, Magnesium 1.7, Total Bilirubin 0.60, AST 16, ALT 25, Alkaline Phosphatase 55, Total Protein 5.2 L, Albumin 2.8 L, Globulin 2.4, Albumin/Globulin Ratio 1.2, TSH 0.596 Radiography Diagnostic Testing: Radiology Impression Brain CT 08/28/24 20:07 IMPRESSION: 1. Normal CT examination of brain 2. No intracranial evidence of acute traumatic injury. 3. No intracranial mass, hemorrhage or acute territorial infarct. 4. No radiographically significant sinus disease.. Electronically Signed: Michael Spangler MD at 21:13 EST , Chest/Abdomen/Pelvis CT 08/28/24 20:07 IMPRESSION: 1. No pulmonary infiltrate consolidation or effusion. No masses or adenopathy mediastinum or hilar regions. 2. Small hiatal hernia. 3. No bowel obstruction abscess free fluid or free air. No evidence diverticulitis or appendicitis. No bowel mass is noted. 4. No evidence of obstructive uropathy. 5. No evidence of cholelithiasis or duct dilatation. Electronically Signed: Michael Spangler MD at 21:39 EST , D/C Instructions Discharge Diet: - (Continue Full liquid diet for the next 24 hours and then may transition to regular diet.) May resume sexual activity in: 10-14 days Weight Bearing Status: Weight bearing as tolerated Call your doctor if you observe: Fever of 101 or Higher, Inability to have a bowel movement, Shortness of breath, Dizziness, Chest pain, Increased palpitations (irregular heartbeat), Calf discomfort, Uncontrolled pain and - (Recurrent significantly worsening black tarry stools. May still be dark but should not be worsening. Additionally, if you have any lightheadedness/dizziness.) DC O2, CPAP, BIPAP Needs Home O2 Discharge instructions: No Meaningful Use Info Meaningful Use Meaningful Use Diagnoses (Choose all that apply): None applicable Ischemic Stroke Statin Dosing Therapy Reference: STATIN DOSE THERAPY REFERENCE: * Patients > 75 years receive moderate or high dose statin therapy. * Patients 75 years or YOUNGER should receive HIGH intensity statin dose unless contraindicated. You will be required to document reason for non-treatment if statin daily dose does not meet guidelines. HIGH DOSE STATIN THERAPY DAILY Atorvastatin > than or = to 40 mg Rosuvastatin > than or = to 20 mg Amlodipine + Atorvastatin > than or = to 2.5/40 mg Ezetimibe + Simvastatin 10/80 mg Simvastatin 80mg Discharge Plan Admission Admit Date/Time: 08/28/24 23:14 Primary Reason for Your Visit: ABLA, GI bleed, KRISTIN Attending Provider: Lorelei Ackerman Primary Care Provider: Care Physician,No Primary Consulting Providers: Mac Keen Instructions Patient Instructions: GI Bleeding Causes and Tests, ED Upper GI Bleeding (Stable) Additional Instructions / Restrictions: ADDITIONAL DISCHARGE INSTRUCTIONS/CARE PLAN: #1. 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 --GI consulted with 08/25/2024 upper endoscopy with LA grade B esophagitis with no bleeding, hematin in the gastric body noted, two 7 mm angiodysplastic lesions with bleeding found in the duodenal bulb with coagulation for hemostasis using heater probe successful with EBL minimal with recommended allowance of full liquid diet and continued PPI. --Following intervention GI allowance of full liquids with recommended slow diet advancement to regular diet over the next 24 hours. --GI requested follow-up in 1 week, continued twice daily high-dose PPI as well as PCP establishment with plan to repeat CBC (complete blood count), BMP (basic metabolic panel) as well as phosphorus levels outpatient given deficiency noted. --AVOID alcohol until re-evaluation with GI and if it is resumed it needs to be only occasionally. --AVOID all NSAIDs (ASA, ibuprofen, naproxen). #2. Leukocytosis (elevated white cell count on labs), suspected secondary to stress response with #1: --Admission w/ WBC 20.9, no evidence of any infection, 08/29/24 most recent repeat CBC w/ WBC 11.5, likely stress response as noted. --Plan as noted follow-up CBC (complete blood count) outpatient with primary care. #3. Lactic acidosis, likely secondary to #1: --Admission LA 2.3, likely secondary to acute GI bleed/volume loss. Patient hydrated, repeat LA 1.2, resolved. #4. Acute kidney injury: --Secondary to acute presentation as noted above #1 with decreased perfusion secondary to GI bleed. --Admission BUN/Cr 43/1.16, GFR 74, hydrated, repeat 08/29/2024 creatinine 0.7, likely more baseline therefore presentation consistent with KRISTIN. --Plan as noted follow-up BMP (basic metabolic panel) outpatient with primary care. #5. Hyperglycemia without Diabetic history: --Admission Glucose 162, concern for possible underlying diabetes versus stress response, thus obtained HgbA1c noted to be 5.0%. Likely stress response given this normal level. #6. Hypophosphatemia: --Admission potassium 2.3, supplementation administered. --Plan to repeat phosphorus levels outpatient given deficiency noted. Discharge Orders/Prescriptions Prescriptions: New pantoprazole [Protonix] 40 mg tablet,delayed release (DR/EC) 40 mg PO BID 60 Days Qty: 120 0RF ferrous gluconate 324 mg (38 mg iron) tablet 324 mg PO DAILY Qty: 30 0RF Referrals / Follow Up: Kota Lobato MD [Med Staff - Active Staff] - (Please follow-up within 1 week to review admission. Please have repeat CBC, BMP and phos level with your primary care physician.) Friend,DO [place] [Med Staff - Active Staff] - (Follow-up in 1 week.) Disposition Disposition (needs filled in before D/C Order can be placed): Home, Self Care Charges/Coding Visit Charges Inpatient E&M: 62809 Disch Hosp >30min
== END 2024-08-29 17:58 | disposition home or self-care (01) | DRG 378 ==
LOC: ED 19:22 → PCU 08-29 03:56
PROVIDERS: Anesthesiology; Internal Medicine Gastroenterology; Admitting Provider Internal Medicine; Emergency Provider Emergency Medicine; Referring Provider Internal Medicine; Visit Provider Family Medicine
PROC: 0DJ08ZZ Inspection of Upper Intestinal Tract, Via Natural or Artificial Opening Endoscopic (ICD-10-PCS; CPT 43235; principal; 2024-08-29 11:30)
DX: K31.811 Angiodysplasia of stomach and duodenum with bleeding (principal); E87.20 Acidosis, unspecified; D62 Acute posthemorrhagic anemia; N17.9 Acute kidney failure, unspecified; K22.10 Ulcer of esophagus without bleeding; E83.39 Other disorders of phosphorus metabolism; E66.9 Obesity, unspecified; E86.9 Volume depletion, unspecified; D72.829 Elevated white blood cell count, unspecified; I95.9 Hypotension, unspecified; R55 Syncope and collapse; R73.9 Hyperglycemia, unspecified; Z68.37 Body mass index [BMI] 37.0-37.9, adult
CPT/HCPCS: 36415; 70450; 71260; 74177; 80048; 80053; 80076; 81001; 82077; 82607; 82728; 82746; 82962; 83036; 83540; 83550; 83605; 83690; 83735; 84100; 84443; 84484; 85025; 85027; 85610; 85730; 86850; 86900; 86901; 93005; 99284; Q9967; A4216; J2405

== ENCOUNTER → 2024-09-08 | Outpatient (CLI) | payer OTHER, SELFPAY ==
[2024-09-08 15:20] LABS: Absolute Lymphocyte Count 1.82 X10^3/uL (0.83-4.51); Absolute Neutrophil Count 7.5 X10^3/uL (2.0-7.7); Basophil# 0.05 X10^3/uL; Basophil% 0.5 % (0-1); Eosinophil# 0.09 X10^3/uL; Eosinophils% 0.9 % (0-5); Hematocrit 35.5 % (40-54); Hemoglobin 11.6 g/dL (13.0-16.5); Lymphocyte # 1.82 X10^3/ul (0.83-4.51); Mean Corp Hgb Conc 32.7 g/dL (32-36); Mean Corpuscular Hgb 31.4 pg (27.0-32.0); Mean Corpuscular Volume 95.9 fL (80-94); Mean Platelet Vol. 8.8 fl (6.2-12.0); Monocyte# 0.57 X10^3/uL; Monocyte% 5.6 % (0-10); NRBC Flagged by Analyzer 0 % (0-5); Neutrophil # 7.47 X10^3/uL (2.7-7.7); Neutrophil % 74.1 % (47-70); Platelet Count 494 K/mm3 (150-450); RBC Distribution Width SD 48.4 fl (35.1-43.9); White Blood Count 10.1 K/mm3 (4.4-11.0)
[2024-09-08 15:59] LABS: ALB/GLOB Ratio 1.1 RATIO (0.9-2.4); AST(SGOT) 22 U/L (15-37); Alanine Aminotransfer ALT/SGPT 40 U/L (16-61); Albumin, Serum 3.7 g/dL (3.2-5.0); Alkaline Phosphatase 91 U/L (45-117); Anion Gap 4 (5-15); BUN 16 mg/dL (7-18); BUN/Creat Ratio 16.4 RATIO (10-20); Chloride 108 mmol/L (98-107); Creatinine, Serum 0.97 mg/dL (0.70-1.30); EST Glomerular Filtration Rate 91 mL/min (>60); Est Glom Filt Rate - Afr Amer 110 mL/min (>60); Globulin 3.5 g/dL (2.2-4.2); Glucose 90 mg/dL (74-106); Potassium 3.8 mmol/L (3.5-5.1); Protein, Total 7.2 g/dL (6.4-8.2); Sodium Level 140 mmol/L (136-145)
== END | disposition home or self-care (01) ==
LOC: MTLAB 11:40
PROVIDERS: PCP Family Medicine; Referring Provider Family Medicine; Visit Provider Family Medicine
DX: Z87.19 Personal history of other diseases of the digestive system (principal)
CPT/HCPCS: 36415; 80053; 85025

== ENCOUNTER → 2025-03-16 | Outpatient (CLI) | payer OTHER, SELFPAY ==
[2025-03-16 12:42] LABS: Hematocrit 45.1 % (40-54); Hemoglobin 15.6 g/dL (13.0-16.5); Immature Granulocytes Count 0.060 X10^3/uL (0.0-0.0); Mean Corp Hgb Conc 34.6 g/dL (32-36); Mean Corpuscular Volume 91.1 fL (80-94); Mean Platelet Vol. 9.3 fl (6.2-12.0); NRBC Flagged by Analyzer 0 % (0-5); Platelet Count 332 K/mm3 (150-450); RBC Distribution Width CV 12.2 % (11.6-14.6); RBC Distribution Width SD 40.6 fl (35.1-43.9); Red Blood Count 4.95 M/mm3 (4.6-6.2); White Blood Count 9.5 K/mm3 (4.4-11.0)
[2025-03-16 13:32] LABS: Anion Gap 11 (5-15); BUN 14 mg/dL (4-19); BUN/Creat Ratio 15.4 RATIO (10-20); Calcium,Total 9.3 mg/dL (7.6-11.0); Carbon Dioxide 25.1 mmol/L (21.0-32.0); Chloride 103 mmol/L (98-108); Cholesterol 185 mg/dL (<=200); Glucose 88 mg/dL (70-99); Low Density Lipoprotein Calc. 117 mg/dL; Potassium 3.9 mmol/L (3.3-5.1); Triglycerides 85 mg/dL; Very Low Density Lipoprotein 17 mg/dL (5-40); cholesterol:hdl ratio screen 3.66
== END | disposition home or self-care (01) ==
LOC: MFPLAB 11:21
PROVIDERS: PCP Family Medicine; Referring Provider Family Medicine; Visit Provider Family Medicine
DX: Z00.00 Encounter for general adult medical examination without abnormal findings (principal); E66.9 Obesity, unspecified; Z87.19 Personal history of other diseases of the digestive system
CPT/HCPCS: 36415; 80048; 80061; 84403; 84443; 85025